=== PATIENT | female | born 1990 | race Caucasian/White ===

== ENCOUNTER 2018-02-13 17:05 | Emergency (ER) | payer OTHER ==
[2018-02-13] MEDS ORDERED: DIPHENHYDRAMINE HCL 25 MG CAPSULE PO ONE (17:41)
[2018-02-13] MEDS ORDERED: METOCLOPRAMIDE HCL 10 MG TABLET PO ONE (17:41)
--- NOTE | 2018-02-13 17:43 | ER Document Report ---
ED Medical Screen (RME) - General Chief Complaint: Urinary Problem Stated Complaint: BACK PAIN,NAUSEA,VOMITING Time Seen by Provider: 02/13/18 17:32 Mode of Arrival: Ambulatory Information source: Patient Notes: 27-year-old female presents via private vehicle with complaint of chest pain, headache that started just prior to arrival. Mother is with the patient and states that she got her "meningitis booster today". Shortly after receiving the shot the patient developed a headache, chest pain, shortness of breath and vomiting. I have greeted and performed a rapid initial assessment of this patient. A comprehensive ED assessment and evaluation of the patient, analysis of test results and completion of medical decision making process we will be contacted by additional ED providers. PHYSICAL EXAMINATION: Vital signs reviewed GENERAL: Well-appearing, well-nourished and in no acute distress. LUNGS: No respiratory distress Musculoskeletal: Normal range of motion NEUROLOGICAL: Normal speech, normal gait. PSYCH: Normal mood, normal affect. SKIN: Warm, Dry, normal turgor, no rashes or lesions noted. TRAVEL OUTSIDE OF THE [place] IN LAST 30 DAYS: No - HPI Onset: Just prior to arrival Onset/Duration: Sudden Quality of pain: Stabbing Associated Symptoms: Chest pain, Headache, Nausea, Shortness of breath, Vomiting Exacerbated by: Other - Leaning forward Relieved by: Denies Similar symptoms previously: No Recently seen / treated by doctor: Yes - Related Data Smoking: Non-smoker Frequency of alcohol use: None Drug Abuse: None Allergies/Adverse Reactions: No Known Allergies Allergy (Verified 03/17/17 07:46) Past Medical History Renal/ Medical History: Denies: Hx Peritoneal Dialysis
[2018-02-13 17:45] VITALS: BP 113/85
[2018-02-13] MEDS ORDERED: NORMAL SALINE 1000 ML 1,000 ML IV ONE (18:20)
[2018-02-13] MEDS ORDERED: ONDANSETRON HCL INJ/PF 4 MG/2 ML SDV IV ONE (18:20)
[2018-02-13] MEDS ORDERED: HYDROMORPHONE HCL INJ/PF 2 MG/ML AMPULE IV ONE ×2 (18:20→20:07)
--- NOTE | 2018-02-13 18:24 | ER Document Report ---
ED General - General Chief Complaint: Urinary Problem Stated Complaint: BACK PAIN,NAUSEA,VOMITING Time Seen by Provider: 02/13/18 17:32 Mode of Arrival: Ambulatory Information source: Patient Notes: 27-year-old female with no reported past medical history presents with complaint of left flank pain that started 2 days prior to arrival. She describes the pain as severe, stabbing and constant. Patient has had associated nausea without vomiting. She does report dysuria. She has had previous kidney stones with her last episode in 2016. Patient admits to chills but denies fever. Patient has had prior similar symptoms. TRAVEL OUTSIDE OF THE [place] IN LAST 30 DAYS: No - HPI Onset: Yesterday Onset/Duration: Gradual, Persistent Quality of pain: Stabbing Severity: Moderate Associated symptoms: Chills, Nausea Exacerbated by: Movement Relieved by: Remaining still Similar symptoms previously: Yes Recently seen / treated by doctor: No - Related Data Allergies/Adverse Reactions: No Known Allergies Allergy (Verified 03/17/17 07:46) Past Medical History - General Information source: Patient - Social History Smoking Status: Former Smoker Chew tobacco use (# tins/day): No Frequency of alcohol use: Social Drug Abuse: None Lives with: Family Family History: Reviewed & Not Pertinent Patient has suicidal ideation: No Patient has homicidal ideation: No - Medical History Medical History: Negative Renal/ Medical History: Reports: Hx Kidney Stones. Denies: Hx Peritoneal Dialysis GI Medical History: Reports: Hx Gastroesophageal Reflux Disease Psychiatric Medical History: Reports: Hx Depression - anxiety Past Surgical History: Reports: Hx Section - x2, Hx Tonsillectomy Review of Systems - Review of Systems Notes: REVIEW OF SYSTEMS: CONSTITUTIONAL : Denies fever, sweats. Denies recent illness. Denies weight loss, recent hospitalizations. EENT: Denies visual changes, eye pain. Denies sore throat, oral lesions, difficulty swallowing. CARDIOVASCULAR: Denies chest pain. Denies palpitations. Denies lower extremity edema. RESPIRATORY: Denies cough. Denies shortness of breath, wheezing. GASTROINTESTINAL: Denies abdominal pain or distention. Denies vomiting, or diarrhea. Denies blood in vomitus, stools, or per rectum. Denies black, tarry stools. Denies constipation. GENITOURINARY: Denies difficulty urinating, frequency, blood in urine, or vaginal discharge. MUSCULOSKELETAL: Denies neck pain or stiffness. Denies joint pain or swelling. SKIN: Denies rash, lesions or sores. HEMATOLOGIC : Denies easy bruising or bleeding. LYMPHATIC: Denies swollen glands. NEUROLOGICAL: Denies confusion or altered mental status. Denies loss of consciousness. Denies dizziness or lightheadedness. Denies headache. Denies weakness or paralysis. Denies problems difficulty with ambulation, slurred speech. Denies sensory loss, numbness, or tingling. Denies seizures. PSYCHIATRIC: Denies anxiety or stress. Denies depression, suicidal ideation, or homicidal ideation. Denies visual or auditory hallucinations. Physical Exam - Vital signs Vitals: Temp Pulse Resp BP Pulse Ox 98.0 F 94 20 113/85 99 02/13/18 17:44 02/13/18 17:44 02/13/18 17:44 02/13/18 17:44 02/13/18 17:44 - Notes Notes: PHYSICAL EXAMINATION: GENERAL: Moderate distress HEAD: Atraumatic, normocephalic. EYES: Pupils equal round and reactive to light, extraocular movements intact, conjunctiva are normal. ENT: Nares patent, oropharynx clear without exudates. Moist mucous membranes. NECK: Normal range of motion, supple without lymphadenopathy LUNGS: Breath sounds clear to auscultation bilaterally and equal. No wheezes rales or rhonchi. HEART: Regular rate and rhythm without murmurs ABDOMEN: Soft, nontender, nondistended abdomen. No guarding, no rebound. No masses appreciated. Left CVA tenderness Female : deferred Musculoskeletal: Normal range of motion, no pitting or edema. No cyanosis. NEUROLOGICAL: Cranial nerves grossly intact. Normal speech, normal gait. Normal sensory, motor exams PSYCH: Normal mood, normal affect. SKIN: Warm, Dry, normal turgor, no rashes or lesions noted. Course - Re-evaluation Re-evalutation: Laboratory 02/13/18 02/13/18 18:16 18:45 Sodium 137.9 Potassium 3.7 Chloride 106 Carbon Dioxide 21 L Anion Gap 11 BUN 11 Creatinine 0.61 Est GFR ( Amer) > 60 Est GFR (Non-Af Amer) > 60 Glucose 89 Calcium 9.8 Urine Color YELLOW Urine Appearance CLOUDY Urine pH 6.0 Ur Specific [place] 1.024 Urine Protein 30 H Urine Glucose (UA) NEGATIVE Urine Ketones 80 H Urine Blood MODERATE H Urine Nitrite NEGATIVE Urine Bilirubin NEGATIVE Urine Urobilinogen NEGATIVE Ur Leukocyte Esterase TRACE H Urine WBC (Auto) 6 Urine RBC (Auto) 4 Urine Bacteria (Auto) TRACE Squamous Epi Cells Auto 14 Urine Mucus (Auto) FEW Urine Ascorbic Acid NEGATIVE Urine HCG, Qual NEGATIVE 27-year-old female presents with left flank pain, hematuria. Vital signs stable upon arrival. Patient is afebrile, normotensive and not hypoxic. Patient does appear ill and in pain but she does not appear dehydrated or toxic. Exam is significant for left CVA tenderness. Patient did receive IV fluids, Dilaudid, Toradol, Flomax and Zofran during her ED course. BMP shows no electrolyte abnormality normal kidney function. Urinalysis shows a moderate amount of blood and significant ketones. 02/13/18 20:08 Patient reports improvement of pain. We discussed why we were not going to CAT scan her again today. She does reports multiple previous CAT scans which I have informed her could cause cancer. With the patient's flank pain, hematuria we are more comfortable assuming that this is a kidney stone then we are exposing her to unnecessary radiation again. She has passed all of her other kidney stones independently. Presents with findings consistent with acute nephrolithiasis. Urinalysis does show hematuria. Laboratory otherwise unremarkable. Pain was able to be controlled here in the emergency department. Patient is tolerating oral intake. Clinical history is not consistent with an acute abdominal aneurysm or dissection, GA, or pulmonary embolus. Urinalysis does not show findings consistent with an infected stone. Vitals have remained within normal limits. Patient will be discharged with recommendations to follow-up with urology, pain medications, and return precautions. They are in agreement with this plan and verbalized indications return to emergency department. Patient was evaluated and treated as appropriate for the patient's presenting symptoms and complaint, with consideration of any critical or life threatening conditions that may be associated with their obtained history and exam as noted above. All results were discussed with patient and... Patient provided the opportunity to ask questions, and express concerns. Patient was educated on treatments based on their presumed diagnosis as noted above. At this time we will discharge the patient with return precautions and follow-up recommendations. Verbal discharge instructions given a the bedside. Medication warnings reviewed. Patient is in agreement with this plan and has verbalized understanding of return precautions. After careful consideration I feel that that patient can be safely discharged from the emergency department, they were advised to followup with a primary care physician in 2-3 days. Dictation on this chart was performed using voice recognition software and may result in unintended grammatical, spelling, syntax or errors. 02/14/18 09:58 02/14/18 09:59 - Vital Signs Vital signs: Temp Pulse Resp BP Pulse Ox 98.0 F 94 20 113/85 99 02/13/18 17:44 02/13/18 17:44 02/13/18 17:44 02/13/18 17:44 02/13/18 17:44 - Laboratory Result Diagrams: 02/13/18 18:45 Laboratory results interpreted by me: 02/13/18 02/13/18 18:16 18:45 Carbon Dioxide 21 L Urine Protein 30 H Urine Ketones 80 H Urine Blood MODERATE H Ur Leukocyte Esterase TRACE H Discharge - Discharge Clinical Impression: Renal colic on left side, Flank pain Hematuria Qualifiers: Hematuria type: unspecified type Qualified Code(s): R31.9 - Hematuria, unspecified Urolithiasis Qualifiers: Urinary calculus location: other lower urinary tract location Qualified Code(s) : N21.8 - Other lower urinary tract calculus Nausea & vomiting Qualifiers: Vomiting type: unspecified Vomiting Intractability: non-intractable Qualified Code(s): R11.2 - Nausea with vomiting, unspecified Condition: Good Disposition: HOME, SELF-CARE Instructions: Intravenous (IV) Fluids ([facility]), Kidney Stone ([facility]), Vomiting ([facility]) Additional Instructions: Your symptoms should improve over the course of the next one week. If you continue to have pain for greater than one week or your pain is not controlled with the pain medications that you have been sent home with you need to return to the emergency department. Please also return if you develop fever, persistent vomiting, or any other symptoms that are concerning to you. You should take ibuprofen 600 mg every 6 hours and use the oral morphine as prescribed only for pain not controlled by ibuprofen. You are also been sent home with a medication called Flomax to help pass the stone. You've been given Zofran to assist with nausea. Please follow-up with urology in the next 2-3 days. Prescriptions: Docusate Sodium [Colace 100 mg Capsule] 100 mg PO DAILY #14 capsule Ibuprofen [Motrin 600 Mg Tablet] 600 mg PO TID #15 tablet Ondansetron [Zofran Odt 4 mg Tablet] 1 - 2 tab PO Q4H PRN #15 tab.rapdis PRN Reason: For Nausea/Vomiting Oxycodone HCl/Acetaminophen [Percocet 5-325 mg Tablet] 1 tab PO ASDIR PRN #15 tab PRN Reason: Tamsulosin HCl [Flomax 0.4 mg Cap.sr] 0.4 mg PO DAILY #7 cap.sr.24h Referrals: STEVE IBRAHIM DO [Primary Care Provider] - Follow up as needed
[2018-02-13 19:18] LABS: ANION GAP 11 (5-19); BLOOD UREA NITROGEN 11 mg/dL (7-20); CALCIUM 9.8 mg/dL (8.4-10.2); CARBON DIOXIDE 21 mmol/L (22-30); CHLORIDE 106 mmol/L (98-107); GLUCOSE 89 mg/dL (75-110); POTASSIUM 3.7 mmol/L (3.6-5.0); SODIUM 137.9 mmol/L (137-145)
[2018-02-13 19:36] LABS: APPEARANCE,URINE CLOUDY; BILIRUBIN,URINE NEGATIVE (NEGATIVE); COLOR,URINE YELLOW; GLUCOSE, URINE NEGATIVE (NEGATIVE); KETONES,URINE 80 mg/dL (NEGATIVE); LEUKOCYTE ESTERASE,URINE TRACE (NEGATIVE); NITRITE,URINE NEGATIVE (NEGATIVE); PROTEIN,URINE 30 mg/dL (NEGATIVE); URINE SPECIFIC GRAVITY 1.024; UROBILINOGEN,URINE NEGATIVE mg/dL (<2.0)
[2018-02-13] MEDS ORDERED: KETOROLAC TROMETHAMINE INJ/PF 30 MG/1 ML SDV IV ONE (20:07)
--- NOTE | 2018-02-14 20:35 | ER Document Report ---
Doctor's Note Notes: 02/14/18 20:30 Patient contacted me today regarding her flank pain which she states is the same as it was yesterday when I saw her. Patient urged to return to the emergency department but she states that she has no one to care for her children at this time. She does state that she will likely come back to the emergency department tomorrow if her pain persists. Patient is requesting that I call the [facility] and let them know that she was seen in the emergency department yesterday. She states that she is having a difficult time caring for her children with her deployed and has requested that he be sent home to assist her. I did call the [facility] that [phone] and informed them of the patient's current diagnosis and condition. Patient's case number is [id number] 02/14/18 20:35
== END 2018-02-13 20:15 | disposition home or self-care (01) ==
LOC: ER 17:05
DX: N20.9 Urinary calculus, unspecified (principal); R31.9 Hematuria, unspecified; R11.2 Nausea with vomiting, unspecified; R10.9 Unspecified abdominal pain; R30.0 Dysuria; R68.83 Chills (without fever); Z87.891 Personal history of nicotine dependence
CPT/HCPCS: 96376; 99283; 96361; 96374; 96375; 36415; 81025; 80048; 81001; J1885; J1170; J2405

== ENCOUNTER 2018-04-02 08:00 | Emergency (ER) | payer OTHER ==
[2018-04-02] MEDS ORDERED: KETOROLAC TROMETHAMINE INJ/PF 30 MG/1 ML SDV IV ONE (08:31)
[2018-04-02] MEDS ORDERED: MORPHINE SULFATE 10 MG/ML INJ IV ONE (08:31)
[2018-04-02] MEDS ORDERED: ONDANSETRON HCL INJ/PF 4 MG/2 ML SDV IV ONE (08:31)
--- NOTE | 2018-04-02 08:31 | ER Document Report ---
ED General - General Chief Complaint: Abdominal Pain Stated Complaint: ABDOMNAL PAIN Time Seen by Provider: 04/02/18 08:12 TRAVEL OUTSIDE OF THE [place] IN LAST 30 DAYS: No - HPI Notes: Patient is a 27-year-old female with a history of IBS and kidney stones who presents to the ED complaining of left flank pain/left abdominal pain intermittently over the last 2 days. Patient states that she thought it was 1 of her typical IBS/kidney stone pains, but the pain has not resolved like it normally would which is what prompted her to come to the emergency department. Patient states that she does have an appoint with a urologist. Patient is not sure if this is her IBS or more kidney stones. She has associated nausea and vomiting. Patient states that she did have diarrhea on Tuesday, but no bowel movement since then. She has been able to eat and drink, but does have a decreased p.o. intake. Patient states that she was feeling well yesterday, but the pain returned early this morning. Patient states that she is also finishing out on her menstrual cycle. She is urinating normally. Denies any headache, fever, URI, sore throat, chest pain, palpitations, syncope, cough, shortness of breath, wheeze, dyspnea, diarrhea, urinary retention, dysuria, hematuria, loss of control of bowel or bladder, numbness/tingling, saddle anesthesia, muscle paralysis/weakness, or rash. - Related Data Allergies/Adverse Reactions: No Known Allergies Allergy (Verified 04/02/18 08:00) Past Medical History - Social History Smoking Status: Current Every Day Smoker Family History: Reviewed & Not Pertinent Renal/ Medical History: Reports: Hx Kidney Stones. Denies: Hx Peritoneal Dialysis GI Medical History: Reports: Hx Gastroesophageal Reflux Disease Psychiatric Medical History: Reports: Hx Depression - anxiety Past Surgical History: Reports: Hx Section - x2, Hx Tonsillectomy Review of Systems - Review of Systems -: Yes All other systems reviewed and negative Physical Exam - Vital signs Vitals: Temp Pulse Resp BP Pulse Ox 98.1 F 101 H 18 125/89 H 95 04/02/18 08:05 04/02/18 08:05 04/02/18 08:05 04/02/18 08:05 04/02/18 08:05 - Notes Notes: PHYSICAL EXAMINATION: GENERAL: Well-appearing, well-nourished and in no acute resp distress. Pt is leaning forward and holding left side. Is not comfortable when laying supine HEAD: Atraumatic, normocephalic. EYES: Pupils equal round and reactive to light, extraocular movements intact, sclera anicteric, conjunctiva are normal. ENT: Nares patent and without discharge. oropharynx clear without exudates. No tonsilar hypertrophy or erythema. Moist mucous membranes. NECK: Normal range of motion, supple without lymphadenopathy LUNGS: Breath sounds clear to auscultation bilaterally and equal. No wheezes rales or rhonchi. HEART: Regular rate and rhythm without murmurs, rubs, gallops. ABDOMEN: Soft, + tenderness to the left flank area. Corona neg. No tenderness at [place]. No lower pelvic tenderness. nondistended abdomen. No guarding, no rebound. No masses appreciated. Normal bowel sounds present. + left CVA tenderness. Musculoskeletal: FROM to passive/active. Strength 5+/5. Extremities: No cyanosis, clubbing, or edema b/l. Peripheral pulses 2+. Capillary refill less than 3 seconds. NEUROLOGICAL: Normal speech, normal gait. Normal sensory, motor exams PSYCH: Normal mood, normal affect. SKIN: Warm, Dry, normal turgor, no rashes or lesions noted. Course - Re-evaluation Re-evalutation: 04/02/18 10:14 Patient is an afebrile, well-hydrated, 27-year-old female who presents to the ED with left abdominal pain, unspecified. I do suspect that this could be related with her IBS. Vitals are acceptable without significant tachycardia, tachypnea, or hypoxia. PE is otherwise unremarkable. Patient has had resolution of her symptoms throughout her stay. Pt was given fluids and meds. CBC, CMP, lipase, urinalysis, hCG were unremarkable for any acute pathology. CT scan of the abdomen/pelvis was unremarkable. Patient is nontoxic-appearing and is able to tolerate p.o. at this time. No further labs or imaging warranted. Low suspicion/risk for acute appendicitis, bowel obstruction, acute cholecystitis, acute cholangitis, perforated diverticulitis, incarcerated hernia , pancreatitis, perforated ulcer, peritonitis, sepsis, pelvic inflammatory disease, ectopic , tubo-ovarian abscess, ovarian torsion, or other systemic emergent condition at this time. Patient is aware that her condition can change from initial presentation and she needs to monitor symptoms closely and seek medical attention if any acute changes. Conservative measures otherwise for symptoms. Recheck with your PCM in 2-3 days. Consider consult with a coal cager. Return to the ED with any worsening/concerning symptoms otherwise as reviewed in discharge. Patient is in agreement. - Vital Signs Vital signs: Temp Pulse Resp BP Pulse Ox 98.1 F 101 H 18 125/89 H 95 04/02/18 08:05 04/02/18 08:05 04/02/18 08:05 04/02/18 08:05 04/02/18 08:05 - Laboratory Result Diagrams: 04/02/18 08:32 04/02/18 08:32 Laboratory results interpreted by me: 04/02/18 08:32 Urine Ascorbic Acid 40 H Discharge - Discharge Clinical Impression: Unspecified abdominal pain Qualifiers: Abdominal location: unspecified location Qualified Code(s): R10.9 - Unspecified abdominal pain Condition: Stable Disposition: HOME, SELF-CARE Instructions: Abdominal Pain ([facility]), Antinausea Medication ([facility]) Additional Instructions: Maintain adequate fluid and food intake [place] diet ([employer] Bananas, rice, apples, toast, etc Zofran as needed tylenol if needed Monitor for any worsening symptoms Make sure you are staying hydrated enough to urinate and have normal BM's Recheck with your PCM in 2-3 days Consider consult with Gastroenterology for ongoing/worsening symptoms Return to the ED with any worsening symptoms and/or development of fever, headache, chest pain, palpitations, syncope, shortness of breath, trouble breathing, abdominal pain, n/v/d, blood in stool/urine, weakness, or other worsening symptoms that are concerning to you. Prescriptions: Ondansetron [Zofran Odt 4 mg Tablet] 1 - 2 tab PO Q4H PRN #15 tab.rapdis PRN Reason: For Nausea/Vomiting Forms: Elevated Blood Pressure, Smoking Cessation Education Referrals: STEVE IBRAHIM DO [NO LOCAL MD] - 04/04/18 ANA GUAJARDO MD [ACTIVE STAFF] - Follow up as needed
[2018-04-02 08:55] LABS: ABSOLUTE EOSINOPHILS # (AUTO) 0.1 10^3/uL (0.0-0.6); ABSOLUTE LYMPHOCYTES (AUTO) 3.4 10^3/uL (0.5-4.7); ABSOLUTE MONOCYTES (AUTO) 0.7 10^3/uL (0.1-1.4); ABSOLUTE NEUT (AUTO) 5.8 10^3/uL (1.7-8.2); BASOPHILS % (AUTO) 0.4 % (0-2); EOSINOPHILS % (AUTO) 1.4 % (0-6); HEMATOCRIT 38.4 % (36.0-47.0); HEMOGLOBIN 13.3 g/dL (12.0-15.5); LYMPHOCYTES % (AUTO) 33.6 % (13-45); MEAN CORPUSCULAR HEMOGLOBIN 30.3 pg (27.0-33.4); MEAN CORPUSCULAR HGB CONC 34.5 g/dL (32.0-36.0); MEAN CORPUSCULAR VOLUME 88 fl (80-97); MONOCYTES % (AUTO) 7.3 % (3-13); PLATELET COUNT 302 10^3/uL (150-450); RED BLOOD COUNT 4.38 10^6/uL (3.72-5.28); SEGMENTED NEUTROPHILS % (AUTO) 57.3 % (42-78); TOTAL CELLS COUNTED % (AUTO) 100 %; WHITE BLOOD COUNT 10.1 10^3/uL (4.0-10.5)
[2018-04-02] MEDS: NORMAL SALINE 1000 ML 1,000 ML IV PRN ×2 (09:12→09:13)
[2018-04-02 09:22] LABS: ALANINE AMINOTRANSFERASE 13 U/L (9-52); ALBUMIN 4.4 g/dL (3.5-5.0); ALKALINE PHOSPHATASE 54 U/L (38-126); ANION GAP 13 (5-19); APPEARANCE,URINE SLIGHTLY-CLOUDY; ASPARTATE AMINO TRANSFERASE 21 U/L (14-36); BILIRUBIN,DIRECT 0.2 mg/dL (0.0-0.4); BILIRUBIN,TOTAL 0.6 mg/dL (0.2-1.3); BILIRUBIN,URINE NEGATIVE (NEGATIVE); BLOOD UREA NITROGEN 15 mg/dL (7-20); CALCIUM 9.5 mg/dL (8.4-10.2); CARBON DIOXIDE 25 mmol/L (22-30); CHLORIDE 103 mmol/L (98-107); COLOR,URINE YELLOW; GLUCOSE 89 mg/dL (75-110); GLUCOSE, URINE NEGATIVE (NEGATIVE); KETONES,URINE NEGATIVE (NEGATIVE); LEUKOCYTE ESTERASE,URINE NEGATIVE (NEGATIVE); LIPASE 52.5 U/L (23-300); NITRITE,URINE NEGATIVE (NEGATIVE); POTASSIUM 4.8 mmol/L (3.6-5.0); PROTEIN,URINE NEGATIVE (NEGATIVE); SODIUM 140.9 mmol/L (137-145); TOTAL PROTEIN 7.6 g/dL (6.3-8.2); URINE SPECIFIC GRAVITY 1.027; UROBILINOGEN,URINE NEGATIVE mg/dL (<2.0)
[2018-04-02] MEDS ORDERED: METOCLOPRAMIDE HCL INJ/PF 10 MG/2 ML SDV IV ONE (09:26)
[2018-04-02] MEDS ORDERED: DICYCLOMINE HCL 10 MG CAPSULE PO ONE (10:02)
--- NOTE | 2018-04-02 10:03 | RADIOLOGY REPORT (SQ) ---
EXAM DESCRIPTION: CT ABD/PELVIS WITH IV ONLY COMPLETED DATE/TIME: 04/02/2018 9:53 am REASON FOR STUDY: Left abd pain, h/o IBS/Stones COMPARISON: None. TECHNIQUE: CT scan of the abdomen and pelvis performed using helical scanning technique with dynamic intravenous contrast injection. No oral contrast. Images reviewed with lung, soft tissue, and bone windows. Reconstructed coronal and sagittal MPR images reviewed. Delayed images for evaluation of the urinary system also acquired. All images stored on PACS. All CT scanners at this facility use dose modulation, iterative reconstruction, and/or weight based d osing when appropriate to reduce radiation dose to as low as reasonably achievable (ALARA). [facility]: Dose Right [facility]: CareDose [facility]: Dose Right [facility]: Teradose 4D [facility]: t3n Mag[place]in CONTRAST TYPE AND DOSE: contrast/concentration: Isovue 350.00 mg/ml; Total Contrast Delivered: 70.0 ml; Total Saline Delivered: 66.0 ml RENAL FUNCTION: None required. The patient is less than 50 years old. RADIATION DOSE: CT Rad equipment meets quality standard of care and radiation dose reduction techniq ues were employed. CTDIvol: 5.4 - 6.9 mGy. DLP: 663 mGy-cm.. LIMITATIONS: None. FINDINGS: LOWER CHEST: No significant findings. No nodules or infiltrates. LIVER: Normal size. No masses. No dilated ducts. SPLEEN: Normal size. No focal lesions. PANCREAS: No masses. No significant calcifications. No adjacent inflammation or peripancreatic fluid collections. Pancreatic duct not dilated. GALLBLADDER: No identified stones by CT criteria. No inflammatory changes to suggest cholecystitis. ADRENAL GLANDS: No significant masses or asymmetry. RIGHT KIDNEY AND URETER: No solid masses. No significant calcifications. No hydronephrosis or hyd roureter. LEFT KIDNEY AND URETER: No solid masses. No significant calcifications. No hydronephrosis or hydr oureter. AORTA AND VESSELS: No aneurysm. No dissection. Renal arteries, SMA, celiac without stenosis. RETROPERITONEUM: No retroperitoneal adenopathy, hemorrhage or masses. BOWEL AND PERITONEAL CAVITY: No masses or inflammatory changes. No free fluid or peritoneal masses. APPENDIX: Normal. PELVIS: No mass. No free fluid. Normal bladder. ABDOMINAL WALL: No masses. No hernias. BONES: No significant or acute findings. OTHER: No other significant finding. IMPRESSION: No CT findings to explain abdominal pain. TECHNICAL DOCUMENTATION: JOB ID: [id number] Quality ID # [id number]: Final reports with documentation of one or more dose reduction techniques (e.g., Au tomated exposure control, adjustment of the mA and/or kV according to patient size, use of iterative reconstruction technique) 2010 [employer]- All Rights Reserved Reading location - IP/workstation name: [email or web address]
[2018-04-02] MEDS ORDERED: HYDROCODONE/ACETAMINOPHEN 5-325 MG (6 TAB/ER DISP) PO PRN (10:17)
[2018-04-02 10:34] VITALS: BP 122/86
== END 2018-04-02 10:39 | disposition home or self-care (01) ==
LOC: ER 08:00
DX: K58.9 Irritable bowel syndrome, unspecified (principal); R10.9 Unspecified abdominal pain; R11.2 Nausea with vomiting, unspecified; F17.200 Nicotine dependence, unspecified, uncomplicated; Z87.442 Personal history of urinary calculi; Z87.19 Personal history of other diseases of the digestive system
CPT/HCPCS: 99284; 96361; 96374; 96375; 36415; 87086; 83690; 84703; 85025; 80053; 81001; 74177; J3490; J1885; J2765; J2270; J7030

== ENCOUNTER 2018-12-28 07:28 | Emergency (ER) | payer OTHER ==
[2018-12-28 09:19] LABS: ABSOLUTE BASOPHILS # (AUTO) 0.1 10^3/uL (0.0-0.2); ABSOLUTE EOSINOPHILS # (AUTO) 0.3 10^3/uL (0.0-0.6); ABSOLUTE MONOCYTES (AUTO) 0.7 10^3/uL (0.1-1.4); ABSOLUTE NEUT (AUTO) 5.2 10^3/uL (1.7-8.2); EOSINOPHILS % (AUTO) 2.7 % (0-6); HEMATOCRIT 42.4 % (36.0-47.0); HEMOGLOBIN 14.5 g/dL (12.0-15.5); LYMPHOCYTES % (AUTO) 32.6 % (13-45); MEAN CORPUSCULAR HEMOGLOBIN 29.6 pg (27.0-33.4); MEAN CORPUSCULAR HGB CONC 34.1 g/dL (32.0-36.0); MEAN CORPUSCULAR VOLUME 87 fl (80-97); MONOCYTES % (AUTO) 7.8 % (3-13); PLATELET COUNT 278 10^3/uL (150-450); RED BLOOD COUNT 4.89 10^6/uL (3.72-5.28); RED CELL DISTRIBUTION WIDTH 12.7 % (11.5-14.0); SEGMENTED NEUTROPHILS % (AUTO) 55.9 % (42-78); TOTAL CELLS COUNTED % (AUTO) 100 %; WHITE BLOOD COUNT 9.3 10^3/uL (4.0-10.5)
[2018-12-28] MEDS ORDERED: KETOROLAC TROMETHAMINE INJ/PF 30 MG/1 ML SDV IV ONE (09:22)
[2018-12-28 09:39] LABS: APPEARANCE,URINE CLOUDY; BILIRUBIN,URINE NEGATIVE (NEGATIVE); COLOR,URINE AMBER; GLUCOSE, URINE NEGATIVE (NEGATIVE); KETONES,URINE 20 mg/dL (NEGATIVE); LEUKOCYTE ESTERASE,URINE MODERATE (NEGATIVE); NITRITE,URINE NEGATIVE (NEGATIVE); PROTEIN,URINE 30 mg/dL (NEGATIVE); URINE SPECIFIC GRAVITY 1.031; UROBILINOGEN,URINE NEGATIVE mg/dL (<2.0)
[2018-12-28 09:48] LABS: ALBUMIN 4.6 g/dL (3.5-5.0); ALKALINE PHOSPHATASE 55 U/L (38-126); ANION GAP 10 (5-19); ASPARTATE AMINO TRANSFERASE 20 U/L (14-36); BILIRUBIN,DIRECT 0.3 mg/dL (0.0-0.4); BILIRUBIN,TOTAL 0.9 mg/dL (0.2-1.3); BLOOD UREA NITROGEN 11 mg/dL (7-20); CALCIUM 9.5 mg/dL (8.4-10.2); CARBON DIOXIDE 21 mmol/L (22-30); CHLORIDE 108 mmol/L (98-107); GLUCOSE 99 mg/dL (75-110)
[2018-12-28] MEDS ORDERED: NORMAL SALINE 1000 ML 1,000 ML IV ONE (09:55)
[2018-12-28] MEDS ORDERED: METHOCARBAMOL INJ/PF 1000 MG/10 ML SDV IV ONE (10:34)
[2018-12-28] MEDS ORDERED: HYDROMORPHONE HCL INJ/PF 2 MG/ML AMPULE IV ONE (10:34)
[2018-12-28] MEDS ORDERED: DIPHENHYDRAMINE HCL 50 MG/ML VIAL IV ONE (10:34)
[2018-12-28] MEDS ORDERED: RINGERS SOLUTION,LACTATED 1,000 ML IV ONE (10:40)
--- NOTE | 2018-12-28 10:40 | ER Document Report ---
ED GI/ - General Chief Complaint: Flank Pain Stated Complaint: ABDOMINAL PAIN, BACK PAIN Time Seen by Provider: 12/28/18 09:54 Primary Care Provider: TIMOTEO DONOVAN PA-C [Primary Care Provider] - Follow up as needed Mode of Arrival: Ambulatory Information source: Patient Notes: This 28-year-old female patient comes emergency room complaining of a 10-day history of right flank pain radiating to the left upper abdomen. She states it feels like it may be a kidney stone, which will frequently trigger her IBS and colicky abdominal pain. She reports that since being on Linzess, she does not get the irritable bowel pain and constipation very often. 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 She states that "when I have to deal with things I get the pain". She states that she is there has been no fever, there has been some clamminess. There is no nausea vomiting diarrhea. She does note that bending over makes the pain worse. She reports the last time she passed a kidney stone she knows of was in June of this year, and she usually does not pass some more frequently than once a year. TRAVEL OUTSIDE OF THE [place] 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 EENT: No symptoms reported Cardiovascular: No symptoms reported Respiratory: No symptoms reported Gastrointestinal: See HPI Genitourinary: No symptoms reported Female Genitourinary: No symptoms reported Musculoskeletal: Back pain Skin: No symptoms reported Hematologic/Lymphatic: No symptoms reported Neurological/Psychological: No symptoms reported Physical Exam - Vital signs Vitals: Temp Pulse Resp BP Pulse Ox 98.2 F 85 16 124/72 98 12/28/18 07:32 12/28/18 07:32 12/28/18 07:32 12/28/18 07:32 12/28/18 07:32 Interpretation: Normal - General General appearance: Alert, Anxious In distress: Moderate - HEENT Head: Normocephalic, Atraumatic Eyes: Normal Pupils: PERRL - Respiratory Respiratory status: No respiratory distress Breath sounds: Normal - Cardiovascular Rhythm: Regular Heart sounds: Normal auscultation Murmur: No - Abdominal Inspection: Normal Distension: No distension Bowel sounds: Normal Tenderness: Tender - There is mild diffuse tenderness throughout the abdomen without guarding or rebound. - Back Back: Tender - Patient is exquisitely did tender to palpate the muscles of the lower thoracic, lumbar and sacral back bilaterally. The right side is worse than the left. - Extremities General upper extremity: Normal inspection General lower extremity: Normal inspection - Neurological Neuro grossly intact: Yes - Psychological Associated symptoms: Normal affect, Normal mood Course - Re-evaluation Re-evalutation: 12/28/18 12:40 Patient reports she is feeling much better after medications. She has talked with her boss and made arrangements to stay out of work until Tuesday to let her back rest. She is agreeable to the idea of trying muscle relaxers and ibuprofen at home. - Vital Signs Vital signs: Temp Pulse Resp BP Pulse Ox 98.2 F 85 16 124/72 98 12/28/18 07:32 12/28/18 07:32 12/28/18 07:32 12/28/18 07:32 12/28/18 07:32 - Laboratory Result Diagrams: 12/28/18 08:58 12/28/18 08:58 Laboratory results interpreted by me: 12/28/18 12/28/18 08:58 08:58 Chloride 108 H Carbon Dioxide 21 L Urine Protein 30 H Urine Ketones 20 H Urine Blood MODERATE H Ur Leukocyte Esterase MODERATE H Urine Ascorbic Acid 20 H Discharge - Discharge Clinical Impression: Strain of muscle, fascia and tendon of lower back, initial encounter Condition: Stable Disposition: HOME, SELF-CARE Additional Instructions: Flank Pain We weren't able to prove an exact cause for your flank pain. Pain in the flank can be caused by a muscle strain or spasm. Sometimes a kidney stone causes pain, but can't be found on our tests. Infection in the kidney should be evident on a urine test. Early shingles can occasionally cause flank pain, without the rash that proves the diagnosis. On rare occasions, disease of the pancreas, aorta, spleen, or colon can create pain in the flank. At this time, there's no evidence of a dangerous condition, and it seems safe for you to be at home. If the pain goes away and does not come back, no further testing will be needed. If pain persists, or becomes more severe, we may need to repeat some tests or order additional new testing. Blood in the urine, urgency to urinate frequently, and pain that radiates to the groin can indicate a kidney stone. Fever may mean that the pain is due to infection, either of the kidney or the colon (diverticulitis). If your pain is early shingles, you should develop an eruption of blisters in the painful area within a few days. Call the doctor or return if you have pain that is spreading or becoming more severe, pain that does not resolve with time, fever, or any other new symptoms. Low Back Pain Three out of every four people will have an episode of disabling back pain during their lifetime. Most commonly the pain is due to straining of the muscles and ligaments in the low back. Usual treatment includes: (1) Rest on a firm surface. Avoid lying on your stomach. (2) Ice pack the painful area. After a few days, gentle heat may be used intermittently to relax the area, or ice packs can be continued. (3) Medication may be needed -- muscle relaxers and antiinflammatory medicines are commonly used. (4) As the back improves, exercises are prescribed to strengthen the back and abdominal muscles. Your doctor will advise you on the proper care for your back at each stage in your recovery. You may be better in a few days -- or healing may take several weeks. If new symptoms of a "herniated disc" (radiation of pain, numbness, or tingling down the back of the leg or weakness in the leg) occur, you should be re-examined. Further testing may be necessary. Take medications as prescribed for muscle relaxation. Take ibuprofen 800 mg every 8 hours for the next few days. Avoid any activity that makes your back pain worse. Follow-up with your primary care provider if not improving. RETURN TO THE EMERGENCY ROOM IF ANY NEW OR WORSENING SYMPTOMS. Prescriptions: Methocarbamol [Robaxin 750 mg Tablet] 750 mg PO ASDIR PRN #40 tablet PRN Reason: Referrals: TIMOTEO DONOVAN PA-C [Primary Care Provider] - Follow up as needed
[2018-12-28 13:34] VITALS: BP 122/75
== END 2018-12-28 13:53 | disposition home or self-care (01) ==
LOC: ER 07:28
DX: S39.012A Strain of muscle, fascia and tendon of lower back, initial encounter (principal); X58.XXXA Exposure to other specified factors, initial encounter; K58.1 Irritable bowel syndrome with constipation; Z79.899 Other long term (current) drug therapy; R10.817 Generalized abdominal tenderness; F17.210 Nicotine dependence, cigarettes, uncomplicated; Z87.442 Personal history of urinary calculi; Z87.19 Personal history of other diseases of the digestive system
CPT/HCPCS: 99284; 96361; 96375; 96365; 36415; 83690; 84703; 85025; 80053; 81001; J1200; J2800; J1885; J1170; J7030; J7120

== ENCOUNTER 2019-04-26 20:21 | Emergency (ER) | payer OTHER ==
--- NOTE | 2019-04-26 20:32 | ER Document Report ---
ED Medical Screen (RME) - General Chief Complaint: Chest Pain Stated Complaint: CHEST PAIN Time Seen by Provider: 04/26/19 20:26 Primary Care Provider: TIMOTEO DONOVAN PA-C [Primary Care Provider] - Follow up as needed TRAVEL OUTSIDE OF THE [place] IN LAST 30 DAYS: No - HPI Notes: 04/26/19 20:31 28-year-old female presents emergency room with sudden onset left-sided chest pain that started gradually yesterday however states today she is felt her heart "squeezing and pressure" that started approximately 3 PM with shortness of breath, she reports numbness and tingling down her left arm. Patient does take control she is adopted she does not know her family's past medical history. She does not smoke. Does not take any anticoagulants, as far she knows she does not have any coagulation disorders. She is due for her menstrual cycle this upcoming week. Patient states she initially attributed this to stress to the fact that his mother has a high stress job however the squeezing in the pressure became progressively worse, she states she feels like a "elephant sitting on her chest" I have greeted and performed a rapid initial assessment of this patient. A comprehensive ED assessment and evaluation of the patient, analysis of test results and completion of the medical decision making process will be conducted by additional ED providers. PHYSICAL EXAMINATION: GENERAL: Well-appearing, well-nourished and in no mild distress HEAD: Atraumatic, normocephalic. EYES: Pupils equal round extraocular movements intact, conjunctiva are normal. ENT: Nares patent NECK: Normal range of motion LUNGS: No respiratory distress Musculoskeletal: Normal range of motion NEUROLOGICAL: Normal speech, normal gait. PSYCH: Normal mood, normal affect. SKIN: Warm, Dry, normal turgor, no rashes or lesions noted. - Related Data Allergies/Adverse Reactions: No Known Allergies Allergy (Verified 12/28/18 07:29) Past Medical History Renal/ Medical History: Reports: Hx Kidney Stones. Denies: Hx Peritoneal Dialysis GI Medical History: Reports: Hx Gastroesophageal Reflux Disease, Hx Irritable Bowel - [facility] Psychiatric Medical History: Reports: Hx Anxiety, Hx Depression Past Surgical History: Reports: Hx Section - x2, Hx Tonsillectomy Doctor's Discharge - Discharge Referrals: TIMOTEO DONOVAN PA-C [Primary Care Provider] - Follow up as needed
--- NOTE | 2019-04-26 20:57 | EKG REPORT ---
SEVERITY:- BORDERLINE ECG - ECTOPIC ATRIAL RHYTHM : Confirmed by: Hunter Valencia MD 26-Apr-2019 20:56:19
[2019-04-26 21:08] LABS: ABSOLUTE BASOPHILS # (AUTO) 0.1 10^3/uL (0.0-0.2); ABSOLUTE EOSINOPHILS # (AUTO) 0.2 10^3/uL (0.0-0.6); ABSOLUTE LYMPHOCYTES (AUTO) 4.1 10^3/uL (0.5-4.7); ABSOLUTE NEUT (AUTO) 7.4 10^3/uL (1.7-8.2); BASOPHILS % (AUTO) 0.9 % (0-2); EOSINOPHILS % (AUTO) 1.5 % (0-6); HEMATOCRIT 42.1 % (36.0-47.0); HEMOGLOBIN 14.3 g/dL (12.0-15.5); LYMPHOCYTES % (AUTO) 31.8 % (13-45); MEAN CORPUSCULAR HEMOGLOBIN 29.8 pg (27.0-33.4); MEAN CORPUSCULAR HGB CONC 33.9 g/dL (32.0-36.0); MEAN CORPUSCULAR VOLUME 88 fl (80-97); MONOCYTES % (AUTO) 7.6 % (3-13); PLATELET COUNT 277 10^3/uL (150-450); RED CELL DISTRIBUTION WIDTH 13.5 % (11.5-14.0); SEGMENTED NEUTROPHILS % (AUTO) 58.2 % (42-78); TOTAL CELLS COUNTED % (AUTO) 100 %; WHITE BLOOD COUNT 12.8 10^3/uL (4.0-10.5)
[2019-04-26 21:24] LABS: ALBUMIN 4.5 g/dL (3.5-5.0); ALKALINE PHOSPHATASE 51 U/L (38-126); ANION GAP 12 (5-19); ASPARTATE AMINO TRANSFERASE 23 U/L (14-36); BILIRUBIN,DIRECT 0.2 mg/dL (0.0-0.4); BILIRUBIN,TOTAL 0.4 mg/dL (0.2-1.3); BLOOD UREA NITROGEN 13 mg/dL (7-20); CALCIUM 9.5 mg/dL (8.4-10.2); CARBON DIOXIDE 24 mmol/L (22-30); CHLORIDE 104 mmol/L (98-107); CREATINE KINASE 43 U/L (30-135); GLUCOSE 129 mg/dL (75-110); POTASSIUM 3.9 mmol/L (3.6-5.0); TOTAL PROTEIN 7.7 g/dL (6.3-8.2)
--- NOTE | 2019-04-26 21:35 | RADIOLOGY REPORT (SQ) ---
EXAM DESCRIPTION: XR CHEST 1 VIEW COMPLETED DATE/TME: 04/26/2019 20:30 CLINICAL HISTORY: 28 years, Female, left side chest pain Comparison: None FINDINGS: No focal lung consolidation. No pleural effusion. No pneumothorax. Cardiac and mediastinal silhouette is unremarkable. No acute osseous abnormality. Soft tissues are unremarkable. IMPRESSION: No acute findings. No focal lung consolidation.
[2019-04-26 21:36] LABS: CREATINE KINASE MB 0.53 ng/mL (<4.55)
[2019-04-26 21:38] LABS: TROPONIN I < 0.012 ng/mL
[2019-04-27 00:08] VITALS: BP 114/86
--- NOTE | 2019-04-27 00:10 | ER Document Report ---
ED General - General Chief Complaint: Chest Pain Stated Complaint: CHEST PAIN Time Seen by Provider: 04/26/19 20:26 Primary Care Provider: TIMOTEO DONOVAN PA-C [Primary Care Provider] - Follow up as needed TRAVEL OUTSIDE OF THE [place] IN LAST 30 DAYS: No - HPI Notes: 28WF p/t ED w/ and 2 kids, ambulatory, w/o PMH, but who says she ultimately decided to come to ED today for what she thinks is "prob me getting myself worked up". she says yesterday she was in tv room w/ kids not stressed or provoked she can recall, when she started feeling rapid heartrate, no (near) syncope but she was flushed and started feeling short of breath. then it kept building she said. she excused herself and went to sit in warm shower (since that's where she goes if she's stressed, but this lasted for minutes and minutes while she sat there in the shower. it didn't improve w/ rest. she says she noted the "gripping pain in her chest and her rapid breathing though doesnt' feel breathing was making cp worse. doesn'ty think it's worse sitting or standing. denies any, this gradually abated, she showered and was ok. then today it started again she again wasn't exerting herself this seemed to cont to increase in sensation of fear something was "going on w/ me other than my usual stress" says she's never had outright panic attacks. also denies any personal h/o BZD use, or of DVT /clotting d/o, cardiac dz (doesn't know FH since she's adopted). 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 she can't pinpoint anything w/ work, or home life, relationship that'd make her more stressed. she is a smoker a few ci gs a day, and she is on a OCP. no periods of immobility no swelling of extremity or elsewhere. does have some tension always in mostly L back and neck that's where she "holds stress". they did host a bunch of family at their place for t-giving which was stressful but that's been over with. - Related Data Allergies/Adverse Reactions: No Known Allergies Allergy (Verified 12/28/18 07:29) Home Medications: Linzess 295mg " on now awhile" (guanylate cyclase-C agonist used for IB. OCP on a few years now Past Medical History - General Information source: Patient - Social History Smoking Status: Current Every Day Smoker Chew tobacco use (# tins/day): No Frequency of alcohol use: Social Drug Abuse: Marijuana Family History: Other - pt adopted doesn't know FH Patient has suicidal ideation: No Patient has homicidal ideation: No Renal/ Medical History: Reports: Hx Kidney Stones. Denies: Hx Peritoneal Dialysis GI Medical History: Reports: Hx Gastroesophageal Reflux Disease, Hx Irritable Bowel - [facility] Psychiatric Medical History: Reports: Hx Anxiety, Hx Depression - anxiety Past Surgical History: Reports: Hx Section - x2, Hx Tonsillectomy Review of Systems - Review of Systems Constitutional: No symptoms reported. denies: Chills, Diaphoresis, Fever, Weakness, Weight gain, Weight loss, Recent illness EENT: No symptoms reported Cardiovascular: See HPI, Heart racing. denies: Palpitations, Orthopnea, Dyspnea, Syncope, Dizziness, Lightheaded, Edema, Paroxysmal Nocturnal Dysp Respiratory: No symptoms reported, Short of breath. denies: Cough, Hurts to breathe, Hemoptysis, Sputum, Stridor, Wheezing Gastrointestinal: No symptoms reported. denies: Abdomen distended, Abdominal pain, Diarrhea, Nausea, Vomiting, Constipation, Blood streaked bowels, Poor appetite, Poor fluid intake, Black stools Genitourinary: No symptoms reported Female Genitourinary: No symptoms reported Musculoskeletal: No symptoms reported Skin: No symptoms reported Hematologic/Lymphatic: No symptoms reported Neurological/Psychological: No symptoms reported Physical Exam - Vital signs Vitals: Resp 13 04/26/19 21:32 Interpretation: Normal - Notes Notes: healthy appearing appears fit, active - General General appearance: Appears well, Alert, Anxious - slight anxiousness slight pressure of speech but linear appropriate In distress: None - HEENT Head: Normocephalic, Atraumatic Eyes: Normal Pupils: PERRL - Respiratory Respiratory status: No respiratory distress Chest status: Nontender Breath sounds: Normal Chest palpation: Normal - Cardiovascular Rhythm: Regular Heart sounds: Normal auscultation Murmur: No - Abdominal Inspection: Normal Distension: No distension Bowel sounds: Normal Tenderness: Nontender Organomegaly: No organomegaly - Back Back: Normal, Nontender - Extremities General upper extremity: Normal inspection, Nontender, Normal color, Normal ROM, Normal temperature General lower extremity: Normal inspection, Nontender, Normal color, Normal ROM, Normal temperature, Normal weight bearing. No: Lela's sign - Neurological Neuro grossly intact: Yes Cognition: Normal Orientation: AAOx4 Selene Coma Scale Eye Opening: Spontaneous [place] Coma Scale Verbal: Oriented Selene Coma Scale Motor: Obeys Commands [place] Coma Scale Total: 15 Speech: Normal Motor strength normal: LUE, RUE, LLE, RLE Sensory: Normal - Psychological Associated symptoms: Normal affect, Normal mood - Skin Skin Temperature: Warm Skin Moisture: Dry Skin Color: Normal Course - Re-evaluation Re-evalutation: 04/28/19 01:51 pt vs remained wnl. i reviewed her ecg and labs including trop. she had No hypoxia on RA at any point or tachycardia. though she has RFs for DVT/PE of smoker and being on OCP, b/c this is episodic unrelated to exertion and she has no alteration of VS to suggest PE or exam findings or hx of DVT i do not believe VTE is at play here. i explained this to her as well as my assessment that i carefully consider both VTE and cardiac etiologies before I ever settle w/ a dx of "panic attack", but given above and her story and exam not c/w ACS or other cardiac etiology and all her lab values, ECG wnl i reassured her i don't believe any of those sinister etiologies are at play. she said she was relieved. still i said, things to watch for are exertional sx even just not feeling well or weakness or sob or cp, dyspnea swelling of extremities. (near) passing out, f/c/n/v or other concerns. did rx three 2.5 mg valium tabs only if pannic attack returns and won't resolve w/ breathing experise we discussed. also spent time discussing smoking cessation karen for not exposing her kids. 04/30/19 15:40 retroactively on reviewing her chart today along w/ the signing physician's interpretation of her ECG as ectopic atrial rhythm, i agree w/ his interpretation. the WA is slightly longer than 120ms. rate is 90. qrs is narrow, regular, but P waves appear unifocal in each lead, but are not sinus. no evidence of ventricular hypertrophy. unable to say if atrial hypertrophy w /this ectopic rhythm. this was present in 12-lead during ED stay on 04/26/19 as well as two other rhythm strips II & V5 also during this ED stay therefore, I called Dorina today 04/30 and spoke w/ her on the phone re: me reviewing her ECG of atrial ectopic rhythm. she had already made a cardiology appt for Thur in a few days from now even before she'd gone to the ED. she has not had any further periods of heart racing/anxiety/chest gripping sensation since her ED visit 04/26, still no (near)passing out or exertional sx. we discussed this in and of itself not being dangerous, but that i was calling to ensure she f/u w/ cards so am glad to hear she has an appt set up. mainly--so (s)he can use further testing to ensure no other structural or electrical di sturbances are persistant which then could lead to more dangerous rhythms. she's been eating/drinking well, doing well at home w/ fam and at work. 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 she will do. very appreciative. knows still can acess ED if needed and to def keep the appt this thur. - Vital Signs Vital signs: Temp Pulse Resp BP Pulse Ox 98.1 F 80 20 114/86 H 98 04/27/19 00:26 04/27/19 00:26 04/27/19 00:26 04/27/19 00:26 04/27/19 00:26 - Laboratory Result Diagrams: 04/26/19 20:31 04/26/19 20:31 Laboratory results interpreted by me: 04/26/19 04/26/19 20:31 20:31 WBC 12.8 H Glucose 129 H Discharge - Discharge Clinical Impression: Chest pain, Muscle spasm of back, Pectoralis muscle strain, Paraspinal muscle spasm, Ectopic atrial rhythm Condition: Good Disposition: HOME, SELF-CARE Additional Instructions: Today on your exam you have a lot of tension in your left pectoralis and your paraspinal muscles of your thoracic region and are holding on the tension here. I think which you experience yesterday and today is anxiety attacks. These absolutely manifest in increased heart rate and rapid breathing which feel very well because they are very real in your body. I have prescribed just a few low dose of Ativan only to be used if you have a panic attack that is not abating. But as we discussed try the SOS exercises in the head space vivian to do some breathing techniques, because I think this would be better than any medicine. Also I suggest getting massage. Things to look for are symptoms when you exert yourself so decline in your ability to do your usual exertion and functions at your job, any passing out or near passing out. Otherwise, your labs are within normal limits here and your EKG looks great. Chest x-ray within normal limits. Please follow-up with your primary doctor and make sure you are getting enough rest eating and drinking well. Avoid any Cokes/ other drinks with caffeine because many have caffeine in it on the market now. Prescriptions: Diazepam [Valium 2 mg Tablet] 2 mg PO ONCE PRN 3 Days #3 tablet PRN Reason: Anxiety Referrals: TIMOTEO DONOVAN PA-C [Primary Care Provider] - Follow up as needed
== END 2019-04-27 00:26 | disposition home or self-care (01) ==
LOC: ER 20:21
DX: S29.011A Strain of muscle and tendon of front wall of thorax, initial encounter (principal); X58.XXXA Exposure to other specified factors, initial encounter; R07.9 Chest pain, unspecified; M62.830 Muscle spasm of back; I49.1 Atrial premature depolarization; F17.200 Nicotine dependence, unspecified, uncomplicated; K58.1 Irritable bowel syndrome with constipation; Z79.899 Other long term (current) drug therapy; Z79.3 Long term (current) use of hormonal contraceptives
CPT/HCPCS: 36415; 71045; 80053; 82550; 82553; 84484; 85025; 85379; 93005; 93010; 99285

== ENCOUNTER 2020-02-27 09:14 | Emergency (ER) | payer OTHER ==
[2020-02-27] MEDS ORDERED: NORMAL SALINE 1000 ML 1,000 ML IV ONE (10:10)
[2020-02-27] MEDS ORDERED: PROCHLORPERAZINE EDISYLATE INJ 10 MG/2 ML VIAL IV ONE (10:10)
[2020-02-27] MEDS ORDERED: DIPHENHYDRAMINE HCL 50 MG/ML VIAL IV ONE (10:10)
--- NOTE | 2020-02-27 10:12 | ER Document Report ---
ED Medical Screen (RME) - General Chief Complaint: Nausea/Vomiting Stated Complaint: NAUSEA,VOMITING Time Seen by Provider: 02/27/20 09:52 Primary Care Provider: TIMOTEO DONOVAN PA-C [Primary Care Provider] - Follow up as needed Notes: Patient presents complaining of abdominal pain for the past 4 days. Patient states she is had vomiting since 1:00 this morning. Patient is currently 10 weeks . Patient states that she is having hyperemesis gravidarum and that she has had this with her previous pregnancies as well. Patient denies any vaginal bleeding or discharge. Patient denies any urinary symptoms. Patient states she is likely going to terminate this . I have greeted and performed a rapid initial assessment of this patient. A comprehensive ED assessment and evaluation of the patient, analysis of test results and completion of the medical decision making process will be conducted by additional ED providers. TRAVEL OUTSIDE OF THE [place] IN LAST 30 DAYS: No - Related Data Allergies/Adverse Reactions: No Known Allergies Allergy (Verified 02/27/20 09:48) Home Medications: phenergan. folic acid. B6 Past Medical History - Social History Drug Abuse: Marijuana Renal/ Medical History: Reports: Hx Kidney Stones. Denies: Hx Peritoneal Dialysis GI Medical History: Reports: Hx Gastroesophageal Reflux Disease, Hx Irritable Bowel - [facility] Psychiatric Medical History: Reports: Hx Anxiety, Hx Depression - anxiety Past Surgical History: Reports: Hx Section - x2, Hx Tonsillectomy Physical Exam - Vital signs Vitals: Temp Pulse Resp BP Pulse Ox 97.6 F 63 20 130/86 H 99 02/27/20 09:18 02/27/20 09:18 02/27/20 09:18 02/27/20 09:18 02/27/20 09:18 - General General appearance: Alert, Anxious In distress: Moderate Notes: Patient moaning, writhing in chair, patient vomiting in triage area. Course - Vital Signs Vital signs: Temp Pulse Resp BP Pulse Ox 97.6 F 63 20 130/86 H 99 02/27/20 09:18 02/27/20 09:18 02/27/20 09:18 02/27/20 09:18 02/27/20 09:18 Doctor's Discharge - Discharge Referrals: TIMOTEO DONOVAN PA-C [Primary Care Provider] - Follow up as needed
[2020-02-27 10:50] LABS: ABSOLUTE BASOPHILS # (AUTO) 0.1 10^3/uL (0.0-0.2); ABSOLUTE LYMPHOCYTES (AUTO) 1.3 10^3/uL (0.5-4.7); ABSOLUTE MONOCYTES (AUTO) 0.5 10^3/uL (0.1-1.4); ABSOLUTE NEUT (AUTO) 13.1 10^3/uL (1.7-8.2); BASOPHILS % (AUTO) 0.7 % (0-2); HEMATOCRIT 38.6 % (36.0-47.0); HEMOGLOBIN 13.4 g/dL (12.0-15.5); LYMPHOCYTES % (AUTO) 8.9 % (13-45); MEAN CORPUSCULAR HEMOGLOBIN 30.5 pg (27.0-33.4); MEAN CORPUSCULAR HGB CONC 34.9 g/dL (32.0-36.0); MEAN CORPUSCULAR VOLUME 87 fl (80-97); MONOCYTES % (AUTO) 3.5 % (3-13); PLATELET COUNT 280 10^3/uL (150-450); RED BLOOD COUNT 4.41 10^6/uL (3.72-5.28); RED CELL DISTRIBUTION WIDTH 12.9 % (11.5-14.0); SEGMENTED NEUTROPHILS % (AUTO) 86.9 % (42-78); TOTAL CELLS COUNTED % (AUTO) 100 %; WHITE BLOOD COUNT 15.1 10^3/uL (4.0-10.5)
[2020-02-27 10:55] LABS: APPEARANCE,URINE CLOUDY; BILIRUBIN,URINE NEGATIVE (NEGATIVE); COLOR,URINE AMBER; GLUCOSE, URINE >=500 mg/dL (NEGATIVE); KETONES,URINE 80 mg/dL (NEGATIVE); LEUKOCYTE ESTERASE,URINE NEGATIVE (NEGATIVE); NITRITE,URINE NEGATIVE (NEGATIVE); PROTEIN,URINE 100 mg/dL (NEGATIVE); URINE SPECIFIC GRAVITY 1.028; UROBILINOGEN,URINE NEGATIVE mg/dL (<2.0)
[2020-02-27 11:08] LABS: ALBUMIN 4.5 g/dL (3.5-5.0); ALKALINE PHOSPHATASE 74 U/L (38-126); ANION GAP 15 (5-19); ASPARTATE AMINO TRANSFERASE 17 U/L (14-36); BILIRUBIN,DIRECT 0.3 mg/dL (0.0-0.4); BILIRUBIN,TOTAL 0.6 mg/dL (0.2-1.3); BLOOD UREA NITROGEN 8 mg/dL (7-20); CALCIUM 10.3 mg/dL (8.4-10.2); CARBON DIOXIDE 18 mmol/L (22-30); CHLORIDE 102 mmol/L (98-107); GLUCOSE 197 mg/dL (75-110); POTASSIUM 3.8 mmol/L (3.6-5.0); TOTAL PROTEIN 7.4 g/dL (6.3-8.2)
[2020-02-27 11:10] LABS: URINE AMPHETAMINES SCREEN NEGATIVE; URINE BARBITURATES SCREEN NEGATIVE; URINE BENZODIAZEPINES SCREEN NEGATIVE; URINE COCAINE SCREEN NEGATIVE; URINE METHADONE SCREEN NEGATIVE; URINE PHENCYCLIDINE SCREEN NEGATIVE
[2020-02-27 11:11] LABS: URINE MARIJUANA (THC) SCREEN UNCONFIRMED POSITIVE
[2020-02-27] MEDS ORDERED: MORPHINE SULFATE 10 MG/ML INJ IV ONE ×2 (11:33→14:23)
--- NOTE | 2020-02-27 12:06 | RADIOLOGY REPORT (SQ) ---
EXAM DESCRIPTION: U/S OB LIMITED IMAGES COMPLETED DATE/TIME: 02/27/2020 11:36 am REASON FOR STUDY: abd pain COMPARISON: None. TECHNIQUE: Limited transabdominal grayscale ultrasound for evaluation of specific requested obstetri fanny parameters. LIMITATIONS: None. FINDINGS: CERVICAL LENGTH: Not obtained. The patient was unable to tolerate the exam. FHR: 185 beats per minute. PRESENTATION: Cephalic. PLACENTA: Not assessed ANATOMY: Not assessed OTHER: [place]-rump length is 4.1 cm. Estimated gestational age 11 week 0 days. Estimated due date is 09/17/2020 IMPRESSION: LIMITED OBSTETRICAL ULTRASOUND WITH MEASURED PARAMETERS DELINEATED ABOVE. Trimester of : First trimester - 0 to 13 weeks. TECHNICAL DOCUMENTATION: JOB ID: [id number] 2010 [employer]- All Rights Reserved Reading location - IP/workstation name: [email or web address]
[2020-02-27] MEDS ORDERED: PROMETHAZINE HCL INJ 25 MG/1 ML VIAL IV ONE (14:23)
--- NOTE | 2020-02-27 14:28 | ER Document Report ---
ED General - General Chief Complaint: Nausea/Vomiting Stated Complaint: NAUSEA,VOMITING Time Seen by Provider: 02/27/20 09:52 Primary Care Provider: TIMOTEO DONOVAN PA-C [Primary Care Provider] - Follow up as needed Mode of Arrival: Ambulatory Information source: Patient TRAVEL OUTSIDE OF THE [place] IN LAST 30 DAYS: No - HPI Notes: Patient presents complaining of severe abdominal pain. She states is mainly left-sided. It is constant and severe. Nothing makes it better or worse. She states this is the same pain she has had with each 1 of her pregnancies. She states she usually requires morphine and Phenergan for the relief. She denies any pain with urination. She is had no vaginal bleeding. 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 No fevers. She has had vomiting with inability to tolerate p.o.'s. - Related Data Allergies/Adverse Reactions: No Known Allergies Allergy (Verified 02/27/20 09:48) Home Medications: phenergan. folic acid. B6 Past Medical History - General Information source: Patient - Social History Smoking Status: Never Smoker Frequency of alcohol use: None Drug Abuse: Marijuana Family History: Reviewed & Not Pertinent, Other - pt adopted doesn't know FH Renal/ Medical History: Reports: Hx Kidney Stones. Denies: Hx Peritoneal Dialysis GI Medical History: Reports: Hx Gastroesophageal Reflux Disease, Hx Irritable Bowel - [facility] Psychiatric Medical History: Reports: Hx Anxiety, Hx Depression - anxiety Past Surgical History: Reports: Hx Section - x2, Hx Tonsillectomy Review of Systems - Review of Systems Constitutional: denies: Chills, Fever Cardiovascular: denies: Chest pain, Palpitations Respiratory: denies: Cough, Short of breath -: Yes All other systems reviewed and negative Physical Exam - Vital signs Vitals: Temp Pulse Resp BP Pulse Ox 97.6 F 63 20 130/86 H 99 02/27/20 09:18 02/27/20 09:18 02/27/20 09:18 02/27/20 09:18 02/27/20 09:18 Interpretation: Normal - General General appearance: Appears well, Alert - HEENT Head: Normocephalic, Atraumatic Eyes: Normal Pupils: PERRL - Respiratory Respiratory status: No respiratory distress Chest status: Nontender Breath sounds: Normal Chest palpation: Normal - Cardiovascular Rhythm: Regular Heart sounds: Normal auscultation Murmur: No - Abdominal Inspection: Normal Distension: No distension Bowel sounds: Normal Tenderness: Tender - Patient has tenderness to palpation of the left lateral a bdomen. No rebound or guarding. Organomegaly: No organomegaly - Back Back: Normal, Nontender - Extremities General upper extremity: Normal inspection, Nontender, Normal color, Normal ROM, Normal temperature General lower extremity: Normal inspection, Nontender, Normal color, Normal ROM, Normal temperature, Normal weight bearing. No: Lela's sign - Neurological Neuro grossly intact: Yes Cognition: Normal Orientation: AAOx4 Selene Coma Scale Eye Opening: Spontaneous [place] Coma Scale Verbal: Oriented Selene Coma Scale Motor: Obeys Commands Selene Coma Scale Total: 15 Speech: Normal Motor strength normal: LUE, RUE, LLE, RLE Sensory: Normal - Psychological Associated symptoms: Normal affect, Normal mood - Skin Skin Temperature: Warm Skin Moisture: Dry Skin Color: Normal Course - Re-evaluation Re-evalutation: 02/27/20 14:26 Patient presents with hyperemesis gravidarum. She does not have a surgical abdomen at this time. She does appear to have significant dehydration. After the first liter of fluid she declined a second liter and stated she would rather be discharged home. Shows no evidence of ectopic or tubal . Urine shows no evidence of infection. - Vital Signs Vital signs: Temp Pulse Resp BP Pulse Ox 97.6 F 63 20 130/86 H 99 02/27/20 09:18 02/27/20 09:18 02/27/20 09:18 02/27/20 09:18 02/27/20 09:18 - Laboratory Result Diagrams: 02/27/20 10:15 02/27/20 10:15 Laboratory results interpreted by me: 02/27/20 02/27/20 02/27/20 10:15 10:15 10:15 WBC 15.1 H Lymph % (Auto) 8.9 L Absolute Neuts (auto) 13.1 H Seg Neutrophils % 86.9 H Sodium 135.1 L Carbon Dioxide 18 L Creatinine 0.40 L Glucose 197 H Calcium 10.3 H Lipase 21.5 L Beta HCG, Quant 53738.00 H Urine Protein 100 H Urine Glucose (UA) >=500 H Urine Ketones 80 H - Diagnostic Test Radiology reviewed: Image reviewed, Reports reviewed Discharge - Discharge Clinical Impression: Hyperemesis arising during , Abdominal pain affecting Condition: Stable Disposition: HOME, SELF-CARE Instructions: Vomiting ([facility]), Intravenous (IV) Fluids ([facility]), Hyperemesis Gravidarum ([facility]) Prescriptions: Promethazine HCl [Phenergan 25 mg Tablet] 1 tab PO Q6H PRN #15 tablet PRN Reason: Forms: Return to Work Referrals: TIMOTEO DONOVAN PA-C [Primary Care Provider] - Follow up tomorrow
[2020-02-27 14:50] VITALS: BP 148/86
== END 2020-02-27 15:10 | disposition home or self-care (01) ==
LOC: ER 09:14
DX: O21.0 Mild hyperemesis gravidarum (principal); O26.891 Other specified pregnancy related conditions, first trimester; R10.9 Unspecified abdominal pain; R10.819 Abdominal tenderness, unspecified site; Z3A.00 Weeks of gestation of pregnancy not specified; Z79.899 Other long term (current) drug therapy; Z87.19 Personal history of other diseases of the digestive system
CPT/HCPCS: 96376; 99285; 96361; 96374; 96375; 36415; 84702; 83690; 85025; 80053; 81001; 80307; 76815; J1200; J2270; J0780; J2550; J7030

== ENCOUNTER 2020-03-25 18:05 | Observation (INO) | payer OTHER ==
--- OUTSIDE RECORDS SUMMARY | 2020-03-25 18:09 | XMS REPORT ---
:1990 [facility] [address] [place] [address] Care Team Providers Name Role Phone [facility] Primary Care Physician Unavaillidia ELMORE Attending Clinician Unavailable Jose A Gonzalez Attending Clinician Unavailable NATALEE HUA Attending Clinician Unavailable Allergies, Adverse Reactions, Alerts This patient has no known allergies or adverse reactions. Medications Ordered Filled Start Stop Current Ordering Indication Dosage Frequency Signature Comments Components Medication Medication Date Date Medication? Clinician (SIG) Name Name doxylamine- 2019-05 Yes Hyperemesis One pil l One pill pyridoxine, 0-15 affecting each am ea ch am vit B6, 00:00: , then one the n one (DICLEGIS) 00 antepartum after afte r 10-10 mg lunch then lunch tablet 2 each then 2 evening each evening pantoprazol 2019-05- Yes Hyperemesis 40mg Take 1 Take 1 e 0-15 10-15 affecting tablet (40 table t (PROTONIX) 00:00: 23:59 , mg total) (40 mg 40 MG 00 :00 antepartum by mouth total) by tablet daily. mouth daily. metoclopram 2019-05- No Hyperemesis Take O ne Take One harry 0-15 10-29 affecting tablet 30 tablet 30 (REGLAN) 10 00:00: 00:00 , minutes minutes MG tablet 00 :00 antepartum before befo re each meal each meal and take and take one tablet one at bedtime tablet at bedtime metroNIDAZO 2019- No Bacterial 500mg Take 1 Ta ke 1 LE (FLAGYL) 02-10 10-05 vaginosis tablet tab let 500 MG 00:00: 23:59 in (500 mg (500 mg tablet 00 :00 total) by total ) by mouth two mouth two (2) times (2) times a day for a day for 7 days. 7 days. folic acid 2020- Yes 400ug Take 1 Take 1 (FOLVITE) 02-03 tablet tablet 400 MCG 00:00: 23:59 (400 mcg (400 mcg tablet 00 :00 total) by total) by mouth mouth daily. daily. doxylamine- 2019- No 2{tbl} Take 2 Take 2 pyridoxine, 02-03-19 tablets by tab lets vit B6, 00:00: 00:00 mouth by mouth (DICLEGIS) 00 :00 nightly. nightl y. 10-10 mg tablet famotidine Yes TK 1 T PO TK 1 T PO (PEPCID) 10 9-10 BID PRN BID ND N MG tablet 00:00: 00 promethazin Yes TK 1 T PO TK 1 T PO e 9-10 Q 6 H PRN Q 6 H PRN (PHENERGAN) 00:00: 25 MG 00 tablet linaCLOtide Yes 1{capsu Take 1 Take 1 (LINZESS) 3-14 le} capsule by carolineu le 290 mcg 00:00: mouth. by mouth. capsule 00 iopamidol 2018- No 100mL 100 mL, (ISOVUE-370 12-29 Intravenou ) 76 % 18:51: 19:45 s, Once in solution 30 :00 imaging, 100 mL contrast, Starting Tue12/29/18 at 1851, For 1 dose
Ro utine diphenhydrA 2018- No 25mg 25 mg, MINE 12-29 Intravenou (BENADRYL) 18:47: 19:02 s, Once, injection 00 :00 Fri 25 mg 12/29/18 at 1847, For 1 dose
ND OTECT FROM LIGHT
S TAT prochlorper 2018- No 10mg 10 mg, azine 12-29 Intravenou (COMPAZINE) 18:47: 19:02 s, Once, injection 00 :00 Fri 10 mg 12/29/18 at 1847, For 1 dose
fo r IV route: dilute each 5mg with 9mL normal saline immediatel y prior to administra tion
ST AT ketorolac 2018- No 30mg 30 mg, (TORADOL) 12-29 Intravenou injection 18:46: 19:18 s, Once, 30 mg 00 :00 Tue12/29/18 at 1846, For 1 dose cefTRIAXone No urinary 1g 1 g, (ROCEPHIN) 12-29 tract Intravenou injection 1 18:39: 19:02 infection s, Once, g 00 :00 Tue12/29/18 at 1839, For 1 dose
re constitute with 9.6 mL SWFI to a final concentrat ion of 100 mg/mL (1000 mg/10 mL). Administer over 3-4 minutes.<b r>STAT, Indication s: urinary tract infection sodium 2018- No 2000mL 2,000 mL, chloride 12-29 Intravenou 0.9% (NS 18:38: 20:36 s, BOLUS) 00 :00 Administer bolus 2,000 over 1 mL Hours, Once, Tue12/29/18 at 1839, For 1 dose
ST AT dicyclomine 2018- No 20mg Take 1 Take 1 (BENTYL) 20 12-29 tablet (20 tab let mg tablet 00:00: 23:59 mg total) (20 m g 00 :00 by mouth total) by Three (3) mouth times a Three (3) day as times a needed day as (abdominal needed cramps). (abdomina for up to l 10 days cramps). for up to 10 days cephalexin No 500mg Take 1 Take 1 (KEFLEX) 12-29 capsule capsule 500 MG 00:00: 23:59 (500 mg (500 mg capsule 00 :00 total) by total) b y mouth Two mouth Two (2) times (2) times a day. for a day. 5 days for 5 days cetirizine Yes 10mg Take 10 mg Take 10 (ZYRTEC) 10 by mouth mg by MG tablet daily. mouth daily. Problems Condition Condition Condition Status Onset Resolution Last Treatin g Comments Name Details Category Date Date Treatment Clinician Date Weight loss Weight loss [id number] Active 2019-052020-03-03 Overview: 0-07 11:03:11 17 lb 00:00: weight 00 loss due to nause a with pregnanc y . 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 Has been started on Diclegis 2 tabs a t night an d 1 tab in am Anxiety Anxiety [id number] Active 2020-02-04 Over view: 02-03 13:18:16 Suffers 00:00: with 00 anxiety and this has become worse since e start of Covid History of History of [id number] Active 2020-02-04 Overview: 02-03 13:19:04 X 2 delivery delivery 00:00: 00 Not on file Not on file [id number] Hyperemesis Hyperemesis Problem active gravidarum gravidarum with with metabolic metabolic disturbance disturbance Abnormal Abnormal Problem active weight loss weight loss Procedures Procedure Date / Time Performed Performing Clinician Devikristi e POCT URINALYSIS DIPSTICK 2020-03-13 15:03:00 Jennie Tenorio Level 3 Estab Pt 2020-03-04 00:00:00 POCT URINALYSIS DIPSTICK 2020-03-03 10:19:00 Izabela Elmore OB LIMITED ANY TRIMESTER 2020-03-03 00:00:00 Izabela Elmore (PLACENTA OR LILIANE OR HRT TONE OR POS) Set Secondary Iv Pump 2020-03-03 00:00:00 Set Continu-Hakan Solution 2020-03-03 00:00:00 Iv Cath Unit 20G 1" 502 2020-03-03 00:00:00 Set Iv Cath 2463 2020-03-03 00:00:00 TSH 2020-02-04 11:52:00 Jennie Tenorio VARICELLA ZOSTER ANTIBODY, IGG 2020-02-04 11:52:00 Nicki Tenorio CBC W/ AUTO DIFF 2020-02-04 11:52:00 Jennie Tenorio HEPATITIS B SURFACE ANTIGEN 2020-02-04 11:52:00 Jennie Tenorio SYPHILIS SCREEN 2020-02-04 11:52:00 Jennie Tenorio RUBELLA ANTIBODY, IGG 2020-02-04 11:52:00 Jennie Tenorioe ABO/RH 2020-02-04 11:52:00 Jennie Tenorio HEPATITIS C ANTIBODY 2020-02-04 11:52:00 Jennie Tenorio HIV ANTIGEN/ANTIBODY COMBO 2020-02-04 11:52:00 Jennie Tenorio HSV ANTIBODIES, IGG 2020-02-04 11:52:00 Jennie Tenorio ANTIBODY SCREEN 2020-02-04 11:52:00 Jennie Tenorio HSV-2 IGG SUPPLEMENTAL TEST 2020-02-04 11:52:00 Jennie Tenorio OFFICE/OUTPATIENT VISIT EST 2019-11-21 12:50:00 CT ABDOMEN PELVIS W CONTRAST 2018-12-29 23:45:34 Bree Kumar URINALYSIS 2018-12-29 21:58:00 Alejandro Hua , URINE 2018-12-29 21:58:00 Alejandro Hua COMPREHENSIVE METABOLIC PANEL 2018-12-29 21:56:00 Alejandro Hua amlin CBC W/ AUTO DIFF 2018-12-29 21:56:00 Alejandro Hua EXTRA TUBES 2018-12-29 21:56:00 Alejandro Hua GOLD SST EXTRA TUBE 2018-12-29 21:56:00 Alejandro Hua Results Test Description Test Time Test Comments Text Results Atomic Results Result Comments POCT urinalysis dipstick (03/13/2020 3:03 PM EDT) 2020-03-13 15 :03:00 Test Item Value Reference Range Comments Color, UA (test code = Color, UA) Clarity, UA (test code = Clarity, UA) Glucose, UA (test code = Glucose, UA) Negative Negative Bilirubin, UA (test code = Bilirubin, UA) Ketones, POC (test code = Ketones, POC) Negative Negative Spec Grav, UA (test code = Spec Grav, UA) Blood, UA (test code = Blood, UA) Negative Negative pH, UA (test code = pH, UA) Protein, UA (test code = Protein, UA) Negative Negative Urobilinogen, UA (test code = Urobilinogen, UA) Leukocytes, UA (test code = Leukocytes, UA) Negative Nega tive Nitrite, UA (test code = Nitrite, UA) Negative Negative STRIP LOT NUMBER (test code = STRIP LOT NUMBER) 3040 STRIP LOT EXPIRATION (test code = STRIP LOT EXPIRATION) 02/12/21 Blood automated leukocyte [id number] 12:06:00 Test Item Value Reference Range Comments White Blood Count (test code = 6690-2) 11.7 4.8-10.8 Blood erythrocytes count (number/volume)2020-03-03 12:06:00 Test Item Value Reference Range Comments Red Blood Count (test code = 89381-9) 4.04 4.1-5.2 Blood hemoglobin measurement (mass/volume)2020-03-03 12:06:00 Test Item Value Reference Range Comments Hemoglobin (test code = 718-7) 12.3 12.0-16.0 Blood hematocrit (volume fraction)2020-03-03 12:06:00 Test Item Value Reference Range Comments Hematocrit (test code = 10094-4) 35.9 37.0-47.0 Automated erythrocyte mean corpuscular volume (MCV) [id number] 12:06:00 Test Item Value Reference Range Comments Mean Corpuscular Volume (test code = 787-2) 88.9 80.0 -98.0 [id number] 12:06:00 Test Item Value Reference Range Comments Mean Corpuscular Hemoglobin (test code = RBQ3662) 30.4 27.0-32.0 Erythrocyte mean corpuscular hemoglobin concentration measurement (mass/volume) 2020-03-03 12:06:00 Test Item Value Reference Range Comments Mean Corpuscular Hemoglobin Concent (test code = 34.2 33.0-36.0 25373-6) Erythrocyte distribution width [id number] 12:06:00 Test Item Value Reference Range Comments Red Cell Distribution Width (test code = 18853-2) 12.5 10.0-14.5 Blood platelets count (number/volume)2020-03-03 12:06:00 Test Item Value Reference Range Comments Platelet Count (test code = 00704-0) 278 130-400 Serum or plasma glucose measurement (mass/volume)2020-03-03 12:06:00 Test Item Value Reference Range Comments Random Glucose (test code = 2345-7) 83 74-99 Serum or plasma urea nitrogen measurement (mass/volume)2020-03-03 12:06:00 Test Item Value Reference Range Comments Blood Urea Nitrogen (test code = 3094-0) 3 7-18 Serum or plasma creatinine measurement (mass/volume)2020-03-03 12:06:00 Test Item Value Reference Range Comments Creatinine (test code = 2160-0) 0.32 0.60-1.30 Blood urea nitrogen/creatinine mass [id number] 12:06:00 Test Item Value Reference Range Comments BUN/Creatinine Ratio (test code = 60468-4) 9.4 10-20 Estimated glomerular filtration rate (GFR) non- [id number] 12:06:00 Test Item Value Reference Range Comments Estimated GFR (Non- > 60 60- Refer ence Range: > or = [place] (test code = 69205-5) 6 0Units: mL/min/1.73 h4Ramrzbje MDRD Study Group Equation Used Estimated glomerular filtration rate (GFR) [id number] 12:06:00 Test Item Value Reference Range Comments Estimated GFR () > 60 60- Reference Range: > or = (test code = 558501259) 60Units: mL/min/1.73 s2Swkormye MDRD Study Group Equation Used Serum or plasma sodium measurement (mass or moles/volume)2020-03-03 12:06:00 Test Item Value Reference Range Comments Sodium Level (test code = 2951-2) 134 136-145 Serum or plasma potassium measurement (moles/volume)2020-03-03 12:06:00 Test Item Value Reference Range Comments Potassium Level (test code = 2823-3) 3.2 3.5-5.1 Serum or plasma chloride measurement (moles/volume)2020-03-03 12:06:00 Test Item Value Reference Range Comments Chloride Level (test code = 2075-0) 103 98-107 Serum or plasma total carbon dioxide measurement (moles/volume)2020-03-03 12:06:00 Test Item Value Reference Range Comments Carbon Dioxide Level (test code = 2028-9) 22 21-32 Serum or plasma anion [id number] 12:06:00 Test Item Value Reference Range Comments Anion Gap (test code = 29928-0) 9.0 4-16 Osmolality of Serum or Plasma by [id number] 12:06:00 Test Item Value Reference Range Comments Calculated Osmolality (test code = 66149-5) 263 280- 300 Serum or plasma calcium measurement (mass/volume)2020-03-03 12:06:00 Test Item Value Reference Range Comments Calcium Level (test code = 17787-0) 8.6 8.5-10.1 Serum or plasma phosphate measurement (mass/volume)2020-03-03 12:06:00 Test Item Value Reference Range Comments Phosphorus Level (test code = 2777-1) 3.0 2.5-4.9 Serum or plasma ionized magnesium measurement (mass/volume)2020-03-03 12:06:00 Test Item Value Reference Range Comments Magnesium Level (test code = 18863-6) 1.9 1.8-2.4 POCT Urinalysis Dipstick (03/03/2020 10:19 AM EDT)2020-03-03 10:19:00 Test Item Value Reference Range Comments Color, UA (test code = Color, UA) Clarity, UA (test code = Clarity, UA) Glucose, UA (test code = Glucose, UA) Negative Negative Bilirubin, UA (test code = Bilirubin, UA) Ketones, POC (test code = Ketones, POC) Trace Negative Spec Grav, UA (test code = Spec Grav, UA) Blood, UA (test code = Blood, UA) Negative Negative pH, UA (test code = pH, UA) Protein, UA (test code = Protein, UA) Trace Negative Urobilinogen, UA (test code = Urobilinogen, UA) Leukocytes, UA (test code = Leukocytes, UA) Trace Nega tive Nitrite, UA (test code = Nitrite, UA) Negative Negative STRIP LOT NUMBER (test code = STRIP LOT NUMBER) 3040 STRIP LOT EXPIRATION (test code = STRIP LOT 02/12/21 EXPIRATION) Varicella zoster antibody, IgG (02/04/2020 11:52 AM EDT)2020-02-04 11:52:00 Test Item Value Reference Range Comments Varicella Zoster IgG (test code = Varicella Zoster >4000 Immune >165 index IgG) HIV Antigen/Antibody Combo (02/04/2020 11:52 AM EDT)2020-02-04 11:52:00 Test Item Value Reference Range Comments HIV Antigen/Antibody Combo (test code = HIV Non Reactive Non Reactive Antigen/Antibody Combo) Rubella Antibody, IgG (02/04/2020 11:52 AM EDT)2020-02-04 11:52:00 Test Item Value Reference Range Comments Rubella Antibodies, IgG (test code = Rubella 20.70 index Imm une >0.99 index Antibodies, IgG) ANTIBODY SCREEN (02/04/2020 11:52 AM EDT)2020-02-04 11:52:00 Test Item Value Reference Range Comments Antibody Screen (test code = Antibody Screen) Negative Ne gative ABO/RH (02/04/2020 11:52 AM EDT)2020-02-04 11:52:00 Test Item Value Reference Range Comments ABO Grouping (test code = ABO Grouping) O Rh Factor (test code = Rh Factor) Positive HSV Antibody, IgG (02/04/2020 11:52 AM EDT)2020-02-04 11:52:00 Test Item Value Reference Range Comments HSV 1 IgG, Type Spec (test code = HSV 1 IgG, <0.91 0.0 0 - 0.90 index Type Spec) HSV 2 IgG, Type Spec (test code = HSV 2 IgG, 4.69 index 0.0 0 - 0.90 index Type Spec) Hepatitis B Surface Antigen (02/04/2020 11:52 AM EDT)2020-02-04 11:52:00 Test Item Value Reference Range Comments Hepatitis B Surface Ag (test code = Hepatitis B Negative Negative Surface Ag) Hepatitis C Antibody (02/04/2020 11:52 AM EDT)2020-02-04 11:52:00 Test Item Value Reference Range Comments Hep C Virus Ab (test code = Hep C Virus Ab) <0.1 0.0 - 0.9 s/co ratio Syphilis Screen (02/04/2020 11:52 AM EDT)2020-02-04 11:52:00 Test Item Value Reference Range Comments RPR (test code = RPR) Non Reactive Non Reactive CBC w/ Differential (02/04/2020 11:52 AM EDT)2020-02-04 11:52:00 Test Item Value Reference Range Comments WBC (test code = WBC) 13.4 x10E3/uL 3.4 - 10.8 x10E3/uL RBC (test code = RBC) 4.82 x10E6/uL 3.77 - 5.28 x10E6/uL HGB (test code = HGB) 14.7 g/dL 11.1 - 15.9 g/dL HCT (test code = HCT) 43.7 % 34.0 - 46.6 % MCV (test code = MCV) 91 fL 79 - 97 fL MCH (test code = MCH) 30.5 pg 26.6 - 33.0 pg MCHC (test code = MCHC) 33.6 g/dL 31.5 - 35.7 g/dL RDW (test code = RDW) 12.6 % 11.7 - 15.4 % Platelet (test code = Platelet) 299 x10E3/uL 150 - 450 x10E3/ uL Neutrophils % (test code = Neutrophils %) 56 % Not Es tab. % Lymphocytes % (test code = Lymphocytes %) 33 % Not Es tab. % Monocytes % (test code = Monocytes %) 8 % Not Estab. % Eosinophils % (test code = Eosinophils %) 3 % Not Es tab. % Basophils % (test code = Basophils %) 0 % Not Estab. % Absolute Neutrophils (test code = 7.5 x10E3/uL 1.4 - 7.0 x10E 3/uL Absolute Neutrophils) Absolute Lymphocytes (test code = 4.4 x10E3/uL 0.7 - 3.1 x10E 3/uL Absolute Lymphocytes) Absolute Monocytes (test code = Absolute 1.0 x10E3/uL 0.1 - 0 .9 x10E3/uL Monocytes) Absolute Eosinophils (test code = 0.4 x10E3/uL 0.0 - 0.4 x10E 3/uL Absolute Eosinophils) Absolute Basophils (test code = Absolute 0.1 x10E3/uL 0.0 - 0 .2 x10E3/uL Basophils) Immature Granulocytes (test code = 0 % Not Estab. % Immature Granulocytes) Bands Absolute (test code = Bands 0.0 x10E3/uL 0.0 - 0.1 x10E 3/uL Absolute) TSH (02/04/2020 11:52 AM EDT)2020-02-04 11:52:00 Test Item Value Reference Range Comments TSH (test code = TSH) 1.560 uIU/mL 0.450 - 4.500 uIU/mL HSV-2 IgG Supplemental Test (02/04/2020 11:52 AM EDT)2020-02-04 11:52:00 Test Item Value Reference Range Comments HSV 2 IgG Supplemental Test (test code = HSV 2 IgG Negative Negative Supplemental Test) #[id number] 20:01:52CT Abdomen Pelvis W Contrast (12/29/2018 7:45 PM EDT)SpecimenImpressionsPerformed At No acute abdominal or pelvic abnormality. Dictated on: 12/29/2018 8:01 PM EDTDictated by: Silvino Vasquez MD Approved and Electronically Signed by: Silvino Vasquez MDApproved on: 12/29/2018 8:11 PM EDT [facility] RADNarrativePerformed AtPROCEDURE: CT OF THE ABDOMEN AND PELVIS WITH IV CONTRAST CLINICAL INDICATION:Left upper quadrant and left lower quadrant abdominal pain. COMPARISON:None available. DOSE: CTDIvol: 13.6 - 16.2 mGy. DLP: 864 mGy-cm. TECHNIQUE:Multiple contiguous axial CT images of theabdomen and pelvis were obtained extending from the lung bases through the ischial tuberosities following intravenous administration of 100 mL Isovue 370 iodinated contrast material, given the patient's indications for the examination.If IV contrast material had not been administered, the likelihood of detecting abnormalities relevant to the patient's condition would have been substantially decreased.Multiplanar reconstructed images were generated and reviewed by the interpreting radiologistat the PACS workstation.Patient creatinine of 0.7 mg/dL. FINDINGS: Calcified granuloma in the left lower lobe. The liver, gallbladder, adrenal glands, kidneys, spleen, and pancreas have a normal contrast-enhanced appearance. No abdominal or pelvic lymphadenopathy. No intraperitoneal free air or free fluid. The colon is entirely decompressed. Appearance of mild wall thickening of the colon is favor ed to be related to underdistention. The unopacified small bowel is unremarkable. The appendix is normal. The uterus and ovaries are unremarkable. Mild thoracolumbar levocurvature. No acute osseous abnormality. [facility] RADProcedure NoteInterface, Rad Results In - 12/29/2018 8:13 PM EDTPROCEDURE: CT OF THE ABDOMEN AND PELVIS WITH IV CONTRAST CLINICAL INDICATION: Left upper quadrant and left lower quadrantabdominal pain. COMPARISON: None available. DOSE: CTDIvol: 13.6 - 16.2 mGy. DLP: 864 mGy-cm. TECHNIQUE: Multiple contiguous axial CT images of the abdomen and pelvis were obtained extending from the lung bases through the ischial tuberosities following intravenous administration of 100 mL Isovue 370 iodinated contrast material, given the patient's indications for the examination. If IV contrast material had not been administered, the likelihood of detecting abnormalities relevant to the patient's condition would have been substantially decreased. Multiplanar reconstructed images were generated and r eviewed by the interpreting radiologist at the PACS workstation. Patient creatinine of 0.7 mg/dL. FINDINGS: Calcified granuloma in the left lower lobe. The liver, gallbladder, adrenal glands, kidneys, spleen, and pancreas have a normal contrast-enhanced appearance. No abdominal or pelvic lymphadenopathy. No intraperitoneal free air or free fluid. The colon is entirely decompressed. Appearance of mildwall thickening of the colon is favored to be related to underdistention. The unopacified small bowel is unremarkable. The appendix is normal. The uterus and ovaries are unremarkable. Mild thoracolumbar levocurvature. No acute osseous abnormality. IMPRESSION: No acute abdominal or pelvic abnormality. Dictated on: 12/29/2018 8:01 PM EDT Dictated by: Silvino Vasquez MD Approved and Electronically Signed by: Silvino Vasquez MD Approved on: 12/29/2018 8:11 PM EDT [facility] HealthPerforming OrganizationAddressC ity/State/ZipcodePhone NumberC[facility] [place] AOA[address] [place] [address] #[id number] 17:58:00 Test Item Value Reference Range Comments Test, Urine (test code = Test, Negative Negative Urine) #[id number] 17:58:00 Test Item Value Reference Range Comments Color, UA (test code = Color, UA) Yellow Yellow, Colorl ess Clarity, UA (test code = Clarity, UA) Hazy Clear Specific [place], UA (test code = Specific 1.029 1.005 -1.030 [place], UA) pH, UA (test code = pH, UA) 5.0 5.0-8.0 Leukocyte Esterase, UA (test code = Leukocyte Large Ne gative Esterase, UA) Nitrite, UA (test code = Nitrite, UA) Negative Negative Protein, UA (test code = Protein, UA) 100 mg/dL Negative Glucose, UA (test code = Glucose, UA) Negative Negative Ketones, UA (test code = Ketones, UA) 80 mg/dL Negative Urobilinogen, UA (test code = Urobilinogen, UA) 0.2 mg/dL 0.2- 1.0 mg/dL Bilirubin, UA (test code = Bilirubin, UA) Negative Negati ve Blood, UA (test code = Blood, UA) Small Negative RBC, UA (test code = RBC, UA) 10 /HPF 0- 5 /HPF WBC, UA (test code = WBC, UA) 31 /HPF 0- 5 /HPF Squam Epithel, UA (test code = Squam Epithel, 10 /HPF 0- 5 /HPF UA) Mucus, UA (test code = Mucus, UA) Rare None Seen /HPF #[id number] 17:56:00 Test Item Value Reference Range Comments Sodium (test code = Sodium) 138 mmol/L 135- 153 mmol/L Potassium (test code = Potassium) 3.5 mmol/L 3.5- 5.3 mmol/ L Chloride (test code = Chloride) 108 mmol/L 96- 112 mmol/L CO2 (test code = CO2) 17.0 mmol/L 23.0- 33.0 mmol/L Anion Gap (test code = Anion Gap) 13 mmol/L 5- 15 mmol/L BUN (test code = BUN) 9 mg/dL 7- 22 mg/dL Creatinine (test code = Creatinine) 0.70 mg/dL 0.50- 1.20 m g/dL BUN/Creatinine Ratio (test code = 13 15-24 BUN/Creatinine Ratio) EGFR CKD-EPI Non-, Female >90 >=60 m L/min/1.73m2 (test code = EGFR CKD-EPI Non-, Female) EGFR CKD-EPI , Female (test >90 >=60 mL/min/1.73m2 code = EGFR CKD-EPI , Female) Glucose (test code = Glucose) 168 mg/dL 70- 110 mg/dL Calcium (test code = Calcium) 9.6 mg/dL 8.7- 10.7 mg/dL Albumin (test code = Albumin) 4.3 g/dL 3.5- 5.2 g/dL Total Protein (test code = Total Protein) 7.5 g/dL 6.1- 8 .0 g/dL Total Bilirubin (test code = Total Bilirubin) 1.2 mg/dL 0. 3- 1.2 mg/dL AST (test code = AST) 17 U/L 12- 45 U/L ALT (test code = ALT) 17 U/L 10- 35 U/L Alkaline Phosphatase (test code = Alkaline 43 U/L 37- 1 07 U/L Phosphatase) Globulin, Total (test code = Globulin, Total) 3.2 g/dL 2. 3- 3.5 g/dL OSMOCALC (test code = OSMOCALC) 278 mOsm/kg 266- 308 mOsm/kg ALBGLOBRAT (test code = ALBGLOBRAT) 1.3 1.1-1.8 #[id number] 17:56:00 Test Item Value Reference Range Comments WBC (test code = WBC) 17.5 10*9/L 4.5- 13.0 10*9/L RBC (test code = RBC) 4.45 10*12/L 3.00- 5.20 10*12/L HGB (test code = HGB) 13.4 g/dL 11.5- 15.3 g/dL HCT (test code = HCT) 39.0 % 34.0- 46.0 % MCV (test code = MCV) 87.6 fL 78.0- 100.0 fL MCH (test code = MCH) 30.0 pg 25.0- 35.0 pg MCHC (test code = MCHC) 34.3 g/dL 31.0- 36.0 g/dL RDW (test code = RDW) 12.7 % 11.0- 15.0 % MPV (test code = MPV) 9.8 fL 6.0- 9.5 fL Platelet (test code = Platelet) 289 10*9/L 150- 450 10*9/L Neutrophils % (test code = Neutrophils %) 82.2 % Lymphocytes % (test code = Lymphocytes %) 13.5 % Monocytes % (test code = Monocytes %) 3.8 % Eosinophils % (test code = Eosinophils %) 0.1 % Basophils % (test code = Basophils %) 0.4 % Absolute Neutrophils (test code = Absolute 14.3 10*9/L 1.8- 8.0 10*9/L Neutrophils) Absolute Lymphocytes (test code = Absolute 2.4 10*9/L 1.2- 6.5 10*9/L Lymphocytes) Absolute Monocytes (test code = Absolute 0.7 10*9/L 0.0- 0. 9 10*9/L Monocytes) Absolute Eosinophils (test code = Absolute 0.0 10*9/L 0.0- 0.6 10*9/L Eosinophils) Absolute Basophils (test code = Absolute 0.1 10*9/L 0.0- 0. 2 10*9/L Basophils) #[id number] 17:56:00GOLD SST EXTRA TUBE (12/29/2018 5:56 PM EDT)SpecimenBloodNarrativePerformed AtCollected and receivedin lab.[facility] LABORATORYPerforming OrganizationAddressCity/State/ZipcodePhone [facility], [place] [phone] OB Limited Any Tri (Placenta or LILIANE or Heart Tone or Position) (10810) (03/03/2020)US OB Limited Any Tri (Placenta or LILIANE or Heart Tone or Position) (01858) (03/03/2020)ImpressionsPerformed AtPlease refer to scanned results. REXRADNarrativePerformed At Performing OrganizationAddressCity/State/ZIP CodePhone NumberREXRAD Assessments Condition Name Status Diagnosis Date Treating Clinici an Weight loss, abnormal Active Hyperemesis gravidarum with dehydration Active Attention-deficit hyperactivity disorder, Active combined type Generalized anxiety disorder Active Panic disorder [episodic paroxysmal anxiety] Active Body mass index (BMI) 29.0-29.9, adult Active Encounters Start End Encounter Admission Attending Care Care Encounter Date/Time Date/Time Type Type Clinicians Facility Department ID 2020-03-13 2020-03-13 Outpatient [facility] [id number] 105_ 14:44:01 15:26:46 [id number] 2020-03-13 2020-03-13 [facility] [id number] 14:44:01 15:26:46 2020-03-13 2020-03-13 [facility] [id number] 00:00:00 00:00:00 [id number] 2020-03-13 [facility] [id number] 00:00:00 00:00:00 [id number] 2020-03-13 [facility] [id number] 00:00:00 00:00:00 2020-03-11 2020-03-11 Outpatient [facility] [id number] 10:55:01 10:55:09 [id number] 2020-03-11 2020-03-11 Outpatient [facility] [id number]_ 00:00:00 00:00:00 [id number] 2020-03-04 Discharged KAILEY ELMORE [id number] 11:29:00 17:52:[address] 2020-03-04 2020-03-04 Outpatient [facility] [id number]_ 00:00:00 00:00:00 [id number] 2020-03-03 [facility] [id number] 10:39:53 10:58:04 2020-03-03 2020-03-03 Outpatient [facility] [id number] 10:39:53 10:58:04 [id number] 2020-03-03 2020-03-03 [facility] [id number] 10:06:59 10:57:45 2020-03-03 2020-03-03 Outpatient [facility] [id number] 10:06:59 10:57:45 [id number] 2020-03-03 2020-03-03 Outpatient [facility] [id number] 00:00:00 00:00:00 [id number] 2020-03-03 Outpatient [facility] [id number] 00:00:00 00:00:00 [id number] 2020-02-28 [facility] [id number] 00:00:00 00:00:00 2020-02-11 2020-02-11 [facility] [id number] 00:00:00 00:00:00 2020-02-11 2020-02-11 [facility] [id number] 00:00:00 00:00:00 2020-02-04 2020-02-04 Outpatient [facility] [id number]_ 11:45:48 23:59:00 [id number] 2020-02-04 2020-02-04 [facility] [id number] 11:45:48 12:00:48 2020-02-04 2020-02-04 [facility] [id number] 08:43:28 11:35:07 2020-02-04 2020-02-04 Outpatient [facility] [id number]_ 08:43:28 11:35:07 [id number] 2020-02-04 2020-02-04 [facility] [id number] 09:02:41 11:34:57 2020-02-04 2020-02-04 Outpatient [facility] [id number]_ 09:02:41 11:34:57 [id number] 2020-02-04 2020-02-04 [facility] [id number]_ 00:00:00 00:00:00 [id number] 2019-11-21 2019-11-21 Outpatient [facility] [id number] 12:50:00 12:50:00 Carlos, Children [id number] Mar s [id number] and [id number], 2018-12-29 2018-12-29 Emergency ER [facility], [facility] [id number]_ 18:04:23 20:44:00 ALEJANDRO [id number] 2018-12-29 2018-12-29 Emergency [facility] [id number] 18:04:23 20:44:00 2018-12-29 2018-12-29 Emergency [facility] [id number]_ 19:35:06 19:35:06 [id number] 2018-12-29 2018-12-29 Emergency ER [facility] [id number]_ 17:21:00 17:21:00 [id number] Immunizations Ordered Immunization Filled Immunization Date Status Commen ts Refusal Reason Name Name Influenza Vaccine 2020-03-13 Completed Quad (IIV4 PF) 6mo+ 00:00:00 injectable Payers Payer Name Policy Type Policy Number Effective Date Expiration D ate [facility] [id number] 2018 00:00:00 [facility] 2020 00:00:00 Plan of Treatment Planned Activity Planned Date Details Comments Future Scheduled Test [code = ] Future Scheduled Test [code = ] Future Scheduled Test [code = ] Future Scheduled Test [code = ] Future Scheduled Test [code = ] Future Scheduled Test [code = ] Future Scheduled Test [code = ] Future Scheduled Test [code = ] Future Scheduled Test [code = ] Future Scheduled Test [code = ] Future Scheduled Test [code = ] Future Scheduled Test [code = ] Future Scheduled Test [code = ] Future Scheduled Test [code = ] Future Scheduled Test [code = ] Future Scheduled Test [code = ] Future Scheduled Test [code = ] Future Scheduled Test [code = ] Future Scheduled Test [code = ] Future Scheduled Test [code = ] Future Scheduled Test [code = ] Future Scheduled Test [code = ] Future Scheduled Test [code = ] Social History Social Habit Start Date Stop Date Comments ASSERTION 2019-12-28 00:00:00 Tobacco smoking status KSIS 2020-03-03 00:00:00 2020-03-03 00:00 :00 Alcohol intake 2020-03-03 00:00:00 2020-03-03 00:00:00 Tobacco use and exposure 2020-03-03 00:00:00 2020-03-03 00:00:00 Social History Observation Description Sex Female Vital Signs Vital Name Observation Time Observation Value Comments Systolic blood pressure 2020-03-13 14:45:00 110 mm[Hg] Diastolic blood pressure 2020-03-13 14:45:00 72 mm[Hg] Body temperature 2020-03-13 14:45:00 36.67 Suha Body weight 2020-03-13 14:45:00 71.079 kg WEIGHT 2020-03-03 17:33:00 69.598499 kg HEIGHT 2020-03-03 17:33:00 160.533230 cm WEIGHT 2020-03-03 11:29:00 69.639340 kg HEIGHT 2020-03-03 11:29:00 160.601394 cm Systolic blood pressure 2020-03-03 10:11:00 118 mm[Hg] Diastolic blood pressure 2020-03-03 10:11:00 78 mm[Hg] Body temperature 2020-03-03 10:11:00 36.72 Suha Body weight 2020-03-03 10:11:00 70.398 kg Systolic blood pressure 2020-02-04 08:47:00 120 mm[Hg] Diastolic blood pressure 2020-02-04 08:47:00 82 mm[Hg] Body temperature 2020-02-04 08:47:00 36.94 Suha Body weight 2020-02-04 08:47:00 74.481 kg Systolic blood pressure 2018-12-29 20:22:00 117 mm[Hg] Diastolic blood pressure 2018-12-29 20:22:00 73 mm[Hg] Heart rate 2018-12-29 20:22:00 89 /min Respiratory rate 2018-12-29 20:22:00 18 /min Oxygen saturation in Arterial blood by 2018-12-29 20:22:00 100 % Pulse oximetry Body temperature 2018-12-29 17:47:00 36.56 Suha Body height 2018-12-29 17:47:00 160 cm Body weight 2018-12-29 17:47:00 75.297 kg
--- NOTE | 2020-03-25 18:54 | PDOC PROGRESS REPORT ---
Subjective Date:: 03/25/20 Subjective:: Reports nausea and diarrhea. Reason For Visit: 14 WEEK IUP HYPEREMESIS Physical Exam - Physical Exam Vital Signs: Temp Pulse Resp BP Pulse Ox 98.2 F 100 17 103/63 100 03/25/20 18:23 03/25/20 18:23 03/25/20 18:23 03/25/20 18:23 03/25/20 18:23 General appearance: PRESENT: no acute distress, well-developed, well-nourished Head exam: PRESENT: atraumatic, normocephalic Cardiovascular exam: PRESENT: RRR. ABSENT: diastolic murmur, rubs, systolic murmur Pulses: PRESENT: normal dorsalis pedis pul, +2 pedal pulses bilateral Vascular exam: PRESENT: normal capillary refill GI/Abdominal exam: PRESENT: normal bowel sounds, soft. ABSENT: distended, guarding, mass, organolmegaly, rebound, tenderness Neurological exam: PRESENT: alert, awake, oriented to person, oriented to place, oriented to time, oriented to situation, CN II-XII grossly intact. ABSENT: motor sensory deficit Psychiatric exam: PRESENT: appropriate affect, normal mood. ABSENT: homicidal ideation, suicidal ideation Assessment & Plan - Diagnosis (1) Hyperemesis affecting , antepartum Is this a current diagnosis for this admission?: Yes - Time Time Spent with patient: 15-24 minutes - Plan Summary Plan Summary: Plan IV hydration. Treat ringworm.
[2020-03-25] MEDS ORDERED: DEXTROSE 5%-LACTATED RINGERS 1,000 ML IV PRN (18:56)
[2020-03-25 19:27] LABS: ABSOLUTE BASOPHILS # (AUTO) 0.2 10^3/uL (0.0-0.2); ABSOLUTE LYMPHOCYTES (AUTO) 2.6 10^3/uL (0.5-4.7); ABSOLUTE MONOCYTES (AUTO) 0.7 10^3/uL (0.1-1.4); ABSOLUTE NEUT (AUTO) 8.7 10^3/uL (1.7-8.2); BASOPHILS % (AUTO) 1.4 % (0-2); EOSINOPHILS % (AUTO) 0.2 % (0-6); HEMATOCRIT 34.8 % (36.0-47.0); HEMOGLOBIN 11.9 g/dL (12.0-15.5); LYMPHOCYTES % (AUTO) 21.6 % (13-45); MEAN CORPUSCULAR HGB CONC 34.1 g/dL (32.0-36.0); MEAN CORPUSCULAR VOLUME 88 fl (80-97); MONOCYTES % (AUTO) 5.6 % (3-13); PLATELET COUNT 270 10^3/uL (150-450); RED BLOOD COUNT 3.96 10^6/uL (3.72-5.28); RED CELL DISTRIBUTION WIDTH 12.5 % (11.5-14.0); SEGMENTED NEUTROPHILS % (AUTO) 71.2 % (42-78); TOTAL CELLS COUNTED % (AUTO) 100 %; WHITE BLOOD COUNT 12.2 10^3/uL (4.0-10.5)
[2020-03-25 19:46] LABS: ALBUMIN 3.7 g/dL (3.5-5.0); ALKALINE PHOSPHATASE 74 U/L (38-126); ANION GAP 9 (5-19); ASPARTATE AMINO TRANSFERASE 18 U/L (14-36); BILIRUBIN,TOTAL 0.4 mg/dL (0.2-1.3); BLOOD UREA NITROGEN 5 mg/dL (7-20); CALCIUM 9.5 mg/dL (8.4-10.2); CARBON DIOXIDE 24 mmol/L (22-30); CHLORIDE 100 mmol/L (98-107); GLUCOSE 84 mg/dL (75-110); POTASSIUM 4.1 mmol/L (3.6-5.0); TOTAL PROTEIN 6.4 g/dL (6.3-8.2)
[2020-03-25] MEDS: PROMETHAZINE HCL INJ 25 MG/1 ML VIAL IV PRN (19:57)
[2020-03-25] MEDS ORDERED: METOCLOPRAMIDE HCL INJ/PF 10 MG/2 ML SDV IV ONE (20:00)
[2020-03-25] MEDS ORDERED: NORMAL SALINE 1000 ML 1,000 ML with POTASSIUM CHLORIDE 20 MEQ, MAGNESIUM SULFATE 8 MEQ,... IV SCH ×5 (22:00)
[2020-03-25] MEDS: ONDANSETRON HCL INJ/PF 4 MG/2 ML SDV IV PRN (22:51)
[2020-03-25] MEDS: CLOTRIMAZOLE/BETAMETHASONE DIP CREAM 15 GM TOP SCH (22:52)
[2020-03-26] MEDS: PROMETHAZINE HCL INJ 25 MG/1 ML VIAL IV PRN ×4 (00:03→14:22)
[2020-03-26] MEDS: ONDANSETRON HCL INJ/PF 4 MG/2 ML SDV IV PRN (07:47)
[2020-03-26] MEDS: CLOTRIMAZOLE/BETAMETHASONE DIP CREAM 15 GM TOP SCH (10:02)
[2020-03-26 11:44] VITALS: BP 122/82
--- NOTE | 2020-03-26 13:29 | PDOC DISCHARGE SUMMARY ---
Impression - Admit/DC Date/PCP Admission Date/Primary Care Provider: 03/25/20 18:05 ALEXY SALGADO MD Discharge Date: 03/26/20 - Discharge Diagnosis (1) Hyperemesis affecting , antepartum Is this a current diagnosis for this admission?: Yes - Assessment Summary: Recieved antiemetics, bananna bag and fluids via IV Stable - Additional Information Discharge Diet: As Tolerated Discharge Activity: Activity As Tolerated, No Driving, No Lifting Over 10 Pounds, Slowly Increase Activity, Walk Frequently Referrals: ALEXY SALGADO MD [Primary Care Provider] - Prescriptions: Promethazine HCl [Phenergan 25 mg Supp.rect] 1 supp [place] QHS #12 supp.rect Home Medications: Linaclotide [Linzess] 290 mg PO DAILY 12/28/18 Doxylamine Succinate/Vit B6 [Doxylamine-Pyridoxine 10-10 mg] 1 each PO BIDBL 03/25/20 Doxylamine Succinate/Vit B6 [Doxylamine-Pyridoxine 10-10 mg] 2 each PO QPM 03/25/20 Promethazine HCl [Phenergan 25 mg Tablet] 1 tab PO Q6HP PRN 03/25/20 Clotrimazole/Betamethasone Dip [Lotrisone Cream 15 gm] 1 applic TOP Q12 tube 03/26/20 Promethazine HCl [Phenergan 25 mg Supp.rect] 1 supp [place] QHS #12 supp.rect 03/26/20 History of Present Illiness History of Present Illness: MITCHELL LUJAN is a 29 year old female Physical Exam - Physical Exam Vital Signs: Temp Pulse Resp BP Pulse Ox 98.2 F 101 H 16 122/82 100 03/26/20 11:43 03/26/20 11:43 03/26/20 11:43 03/26/20 11:43 03/26/20 11:43 Intake & Output 03/25/20 03/26/20 03/27/20 06:59 06:59 06:59 Intake Total 1073 Balance 1073 Weight 69.853 kg Results Laboratory Results: WBC 12.2 10^3/uL (4.0-10.5) H 03/25/20 19:13 RBC 3.96 10^6/uL (3.72-5.28) 03/25/20 19:13 Hgb 11.9 g/dL (12.0-15.5) L 03/25/20 19:13 Hct 34.8 % (36.0-47.0) L 03/25/20 19:13 MCV 88 fl (80-97) 03/25/20 19:13 MCH 30.0 pg (27.0-33.4) 03/25/20 19:13 MCHC 34.1 g/dL (32.0-36.0) 03/25/20 19:13 RDW 12.5 % (11.5-14.0) 03/25/20 19:13 Plt Count 270 10^3/uL (150-450) 03/25/20 19:13 Lymph % (Auto) 21.6 % (13-45) 03/25/20 19:13 [place] % (Auto) 5.6 % (3-13) 03/25/20 19:13 Eos % (Auto) 0.2 % (0-6) 03/25/20 19:13 Baso % (Auto) 1.4 % (0-2) 03/25/20 19:13 Absolute Neuts (auto) 8.7 10^3/uL (1.7-8.2) H 03/25/20 19:13 Absolute Lymphs (auto) 2.6 10^3/uL (0.5-4.7) 03/25/20 19:13 Absolute Monos (auto) 0.7 10^3/uL (0.1-1.4) 03/25/20 19:13 Absolute Eos (auto) 0.0 10^3/uL (0.0-0.6) 03/25/20 19:13 Absolute Basos (auto) 0.2 10^3/uL (0.0-0.2) 03/25/20 19:13 Seg Neutrophils % 71.2 % (42-78) 03/25/20 19:13 Sodium 132.6 mmol/L (137-145) L 03/25/20 19:13 Potassium 4.1 mmol/L (3.6-5.0) 03/25/20 19:13 Chloride 100 mmol/L (98-107) 03/25/20 19:13 Carbon Dioxide 24 mmol/L (22-30) 03/25/20 19:13 Anion Gap 9 (5-19) 03/25/20 19:13 BUN 5 mg/dL (7-20) L 03/25/20 19:13 Creatinine 0.39 mg/dL (0.52-1.25) L 03/25/20 19:13 Est GFR ( Amer) > 60 (>60) 03/25/20 19:13 Est GFR (MDRD) Non-Af > 60 (>60) 03/25/20 19:13 Glucose 84 mg/dL (75-110) 03/25/20 19:13 Calcium 9.5 mg/dL (8.4-10.2) 03/25/20 19:13 Total Bilirubin 0.4 mg/dL (0.2-1.3) 03/25/20 19:13 Direct Bilirubin 0.0 mg/dL (0.0-0.4) 03/25/20 19:13 Neonat Total Bilirubin Not Reportable 03/25/20 19:13 Neonat Direct Bilirubin Not Reportable 03/25/20 19:13 Neonat Indirect Bili Not Reportable 03/25/20 19:13 AST 18 U/L (14-36) 03/25/20 19:13 ALT 13 U/L (<35) 03/25/20 19:13 Alkaline Phosphatase 74 U/L (38-126) 03/25/20 19:13 Total Protein 6.4 g/dL (6.3-8.2) 03/25/20 19:13 Albumin 3.7 g/dL (3.5-5.0) 03/25/20 19:13 Stroke Is this a Stroke Patient?: No Acute Heart Failure Is this a Heart Failure Patient?: No
== END 2020-03-26 15:32 | disposition home or self-care (01) ==
LOC: INTOOBSV 18:05 → 2S 18:05
PROVIDERS: ADMIT Obstetrics & Gynecology; ATTEND Obstetrics & Gynecology
DX: O21.0 Mild hyperemesis gravidarum (principal); O99.712 Diseases of the skin and subcutaneous tissue complicating pregnancy, second trimester; B35.9 Dermatophytosis, unspecified; O99.612 Diseases of the digestive system complicating pregnancy, second trimester; R19.7 Diarrhea, unspecified; Z3A.14 14 weeks gestation of pregnancy
CPT/HCPCS: 36415; 85025; 80053; G0378 ×2; G0379; J3475; J2765; J3480; J2550 ×2; J3411; J2405 ×2; J7121; J7030; J3490